=== PATIENT | female | born 1970 | race American Indian/Alaskan Native ===

== ENCOUNTER 2021-08-20 15:35 | Inpatient (IN) | payer MEDICAID ==
[2021-08-20] MEDS ORDERED: GLUCAGON (HUMAN RECOMBINANT) 1 MG/ML INJ IV ONE (16:01)
[2021-08-20] MEDS ORDERED: SODIUM CHLORIDE 0.9% 1000 ML 1,000 ML IV ONE ×2 (16:01→16:19)
--- NOTE | 2021-08-20 16:06 | Emergency Department Report ---
History of Present Illness - General Chief Complaint: Overdose Stated Complaint: OVERDOSE Time Seen by Provider: 08/20/21 15:57 Source: EMS Mode of arrival: Stretcher Limitations: No Limitations - History of Present Illness Initial Comments: Patient is a 51-year-old female brought in from home by EMS for overdose. Patient reportedly called out to EMS after intentionally overdosing on her home meds which include alprazolam, clonidine, propranolol, amlodipine, fluoxetine, olanzapine. She was given Narcan by EMS in route. - Related Data Allergies Allergy/AdvReac Type Severity Reaction Status Date / Time Unable to Assess Allergy Verified 08/20/21 15:40 ED Review of Systems ROS: Stated complaint: OVERDOSE Other details as noted in HPI Comment: Unobtainable due to pts medical conditions ED Physical Exam - General Limitations: No Limitations General appearance: appears intoxicated, obtunded - Head Head exam: Present: atraumatic, normocephalic - Eye Pupils: Present: miosis - Respiratory Respiratory exam: Present: normal lung sounds bilaterally. Absent: respiratory distress - Cardiovascular Cardiovascular Exam: Present: regular rate, normal rhythm, normal heart sounds - GI/Abdominal GI/Abdominal exam: Present: soft. Absent: distended, tenderness - Neurological Exam Neurological exam: Present: other (Patient altered/intoxicated) - Skin Skin exam: Present: warm, dry, intact, normal color ED Course Vital Signs 08/20/21 08/20/21 08/20/21 15:38 15:57 16:00 Pulse Rate 72 79 79 Respiratory 15 12 Rate Blood Pressure 94/68 Blood Pressure 95/65 [Left] O2 Sat by Pulse 99 98 96 Oximetry 08/20/21 08/20/21 08/20/21 16:15 16:31 16:45 Pulse Rate 73 71 72 Respiratory 14 15 14 Rate Blood Pressure 87/60 92/57 84/54 Blood Pressure [Left] O2 Sat by Pulse 99 99 99 Oximetry 08/20/21 08/20/21 08/20/21 17:01 17:15 17:31 Pulse Rate 70 68 67 Respiratory 13 14 14 Rate Blood Pressure 82/54 84/54 83/55 Blood Pressure [Left] O2 Sat by Pulse 99 99 Oximetry 08/20/21 08/20/21 08/20/21 17:45 18:01 18:36 Pulse Rate 66 64 Respiratory 13 22 Rate Blood Pressure 82/52 110/77 Blood Pressure [Left] O2 Sat by Pulse 99 100 100 Oximetry ED Medical Decision Making - Lab Data Result diagrams: 08/20/21 16:08 08/20/21 16:08 - Medical Decision Making CBC and CMP grossly unremarkable. UDS positive for cocaine and marijuana. Patient given IV glucagon and additional Narcan for refractory hypotension. She was also given 2 L normal saline bolus. 1013 file. Will admit to telemetry. Critical care attestation.: If time is entered above; I have spent that time in minutes in the direct care of this critically ill patient, excluding procedure time. ED Disposition Clinical Impression: Intentional overdose, Hypotension due to medication Disposition: ADMITTED INPATIENT Is pt being admited?: Yes Condition: Stable
[2021-08-20] MEDS ORDERED: NALOXONE 2 MG/2 ML INJ ONE (16:12)
[2021-08-20 16:20] LABS: Basophils % (Auto) 0.6 % (0.0-1.8); Eosinophils % (Auto) 0.5 % (0.0-4.3); Hematocrit 40.7 % (30.3-42.9); Hemoglobin 13.2 gm/dl (10.1-14.3); Lymphocytes # (Auto) 2.5 K/mm3 (1.2-5.4); Lymphocytes % (Auto) 49.8 % (13.4-35.0); Mean Corpuscular HGB Conc 33 % (30-34); Mean Corpuscular Volume 91 fl (79-97); Monocytes # (Auto) 0.5 K/mm3 (0.0-0.8); Monocytes % (Auto) 10.6 % (0.0-7.3); Platelet Count 228 K/mm3 (140-440); Red Blood Count 4.47 M/mm3 (3.65-5.03); Red Cell Distribution Width 15.9 % (13.2-15.2)
[2021-08-20] MEDS ORDERED: NALOXONE 2 MG/2 ML INJ IV ONE (16:21)
[2021-08-20 16:59] LABS: Alanine Aminotransferase 46 units/L (7-56); Blood Urea Nitrogen 4 mg/dL (7-17); Calcium 9.1 mg/dL (8.4-10.2); Hemolysis Index 5
[2021-08-20 17:00] LABS: BUN/Creatinine Ratio 7
[2021-08-20 19:11] LABS: Amphetamine Screen,Urine Negative; Benzodiazepines Screen,Urine Negative; Methadone Screen,Urine Negative; Opiate Screen,Urine Negative
[2021-08-20 19:27] LABS: Cannabinoid Screen,Urine Positive; Cocaine Screen,Urine Positive
--- NOTE | 2021-08-20 21:22 | History and Physical Report ---
History of Present Illness Date of examination: 08/20/21 Date of admission: 08/20/2021 Chief complaint: Altered sensorium since a.m. History of present illness: Patient is a 51-year-old female brought in from home by EMS for overdose. Patient reportedly called out to EMS after intentionally overdosing on her home meds which include alprazolam, clonidine, propranolol, amlodipine, fluoxetine, olanzapine. She was given Narcan by EMS in route. Past History Past Medical History: hypertension, other (Generalized anxiety disorder, depression) Past Surgical History: Other (Past surgical history could not be obtained) Social history: lives with family, full code Family history: hypertension Medications and Allergies Allergies Allergy/AdvReac Type Severity Reaction Status Date / Time Unable to Assess Allergy Verified 08/20/21 15:40 Home Medications Medication Instructions Recorded Confirmed Last Taken Type ALPRAZolam [Xanax TAB] 0.5 mg PO DAILY PRN 08/21/21 08/21/21 Unknown History Amlodipine Besylate [Norvasc] 5 mg PO DAILY 08/21/21 08/21/21 Unknown History FLUoxetine HCL [PROzac] 40 mg PO QDAY 08/21/21 08/21/21 Unknown History OLANZapine [Olanzapine] 10 mg PO HS 08/21/21 08/21/21 Unknown History cloNIDine [Catapres] 0.1 mg PO QHS 08/21/21 08/21/21 Unknown History propranoloL [Inderal] 40 mg PO BID 08/21/21 08/21/21 Unknown History Active Meds: Active Medications Dextrose/Sodium Chloride (D5ns) 1,000 mls @ 125 mls/hr IV DIRECT FEDERICO Review of Systems All systems: negative Neurological: change in mentation, other (Decreased responsiveness and altered sensorium) Exam - Constitutional Vitals: Temp Pulse Resp BP Pulse Ox 64 22 110/77 100 08/20/21 18:01 08/20/21 18:01 08/20/21 18:01 08/20/21 18:36 General appearance: Present: mild distress, well-nourished - EENT Eyes: Present: PERRL ENT: hearing intact, clear oral mucosa - Neck Neck: Present: supple, normal ROM - Respiratory Respiratory effort: normal Respiratory: bilateral: CTA - Cardiovascular Heart rate: 78 Rhythm: regular Heart Sounds: Present: S1 & S2. Absent: rub, click - Extremities Extremities: no ischemia, pulses intact, pulses symmetrical, No edema Peripheral Pulses: within normal limits - Abdominal General gastrointestinal: Present: soft, non-tender, non-distended, normal bowel sounds Female genitourinary: Present: normal - Integumentary Integumentary: Present: clear, warm, dry - Musculoskeletal Musculoskeletal: generalized weakness - Psychiatric Psychiatric: other (Unresponsive) - Neurologic Neurologic: moves all extremities - Allied Health Allied health notes reviewed: nursing HEART Score - HEART Score History: Slightly suspicious Age: 45-65 Risk factors: 1-2 risk factors Troponin: < normal limit - Critical Actions Critical Actions: 0-3 pts:0.9-1.7%risk of adverse cardiac event.Candidate for discharge Results - Labs CBC & Chem 7: 08/21/21 03:54 08/21/21 03:54 Labs: Laboratory Last Values WBC 5.0 K/mm3 (4.5-11.0) 08/20/21 16:08 RBC 4.47 M/mm3 (3.65-5.03) 08/20/21 16:08 Hgb 13.2 gm/dl (10.1-14.3) 08/20/21 16:08 Hct 40.7 % (30.3-42.9) 08/20/21 16:08 MCV 91 fl (79-97) 08/20/21 16:08 MCH 30 pg (28-32) 08/20/21 16:08 MCHC 33 % (30-34) 08/20/21 16:08 RDW 15.9 % (13.2-15.2) H 08/20/21 16:08 Plt Count 228 K/mm3 (140-440) 08/20/21 16:08 Lymph % (Auto) 49.8 % (13.4-35.0) H 08/20/21 16:08 [place] % (Auto) 10.6 % (0.0-7.3) H 08/20/21 16:08 Eos % (Auto) 0.5 % (0.0-4.3) 08/20/21 16:08 Baso % (Auto) 0.6 % (0.0-1.8) 08/20/21 16:08 Lymph # (Auto) 2.5 K/mm3 (1.2-5.4) 08/20/21 16:08 [place] # (Auto) 0.5 K/mm3 (0.0-0.8) 08/20/21 16:08 Eos # (Auto) 0.0 K/mm3 (0.0-0.4) 08/20/21 16:08 Baso # (Auto) 0.0 K/mm3 (0.0-0.1) 08/20/21 16:08 Seg Neutrophils % 38.5 % (40.0-70.0) L 08/20/21 16:08 Seg Neutrophils # 1.9 K/mm3 (1.8-7.7) 08/20/21 16:08 Sodium 136 mmol/L (137-145) L 08/20/21 16:08 Potassium 3.4 mmol/L (3.6-5.0) L 08/20/21 16:08 Chloride 99.2 mmol/L (98-107) 08/20/21 16:08 Carbon Dioxide 23 mmol/L (22-30) 08/20/21 16:08 Anion Gap 17 mmol/L 08/20/21 16:08 BUN 4 mg/dL (7-17) L 08/20/21 16:08 Creatinine 0.6 mg/dL (0.6-1.2) 08/20/21 16:08 Estimated GFR > 60 ml/min 08/20/21 16:08 BUN/Creatinine Ratio 7 % 08/20/21 16:08 Glucose 85 mg/dL (65-100) 08/20/21 16:08 Calcium 9.1 mg/dL (8.4-10.2) 08/20/21 16:08 Total Bilirubin 0.30 mg/dL (0.1-1.2) 08/20/21 16:08 AST 54 units/L (5-40) H 08/20/21 16:08 ALT 46 units/L (7-56) 08/20/21 16:08 Alkaline Phosphatase 82 units/L (35-129) 08/20/21 16:08 Total Protein 7.9 g/dL (6.3-8.2) 08/20/21 16:08 Albumin 4.0 g/dL (3.9-5) 08/20/21 16:08 Albumin/Globulin Ratio 1.0 % 08/20/21 16:08 Urine Opiates Screen Negative 08/20/21 18:05 Urine Methadone Screen Negative 08/20/21 18:05 Ur Barbiturates Screen Negative 08/20/21 18:05 Ur Phencyclidine Scrn Negative 08/20/21 18:05 Ur Amphetamines Screen Negative 08/20/21 18:05 U Benzodiazepines Scrn Negative 08/20/21 18:05 Urine Cocaine Screen Positive 08/20/21 18:05 U Marijuana (THC) Screen Positive 08/20/21 18:05 Drugs of Abuse Note Disclamer 08/20/21 18:05 Short CBC 08/20/21 08/21/21 Range/Units 16:08 03:54 WBC 5.0 5.8 (4.5-11.0) K/mm3 Hgb 13.2 12.2 (10.1-14.3) gm/dl Hct 40.7 37.3 (30.3-42.9) % Plt Count 228 224 (140-440) K/mm3 BMP 08/20/21 08/21/21 16:08 03:54 Sodium 136 L 140 Potassium 3.4 L 3.5 L Chloride 99.2 107.2 H Carbon Dioxide 23 22 BUN 4 L 4 L Creatinine 0.6 0.5 L Glucose 85 109 H Calcium 9.1 8.2 L Liver Function 08/20/21 08/21/21 Range/Units 16:08 03:54 Total Bilirubin 0.30 0.40 (0.1-1.2) mg/dL AST 54 H 44 H (5-40) units/L ALT 46 38 (7-56) units/L Alkaline Phosphatase 82 71 (35-129) units/L Albumin 4.0 3.2 L (3.9-5) g/dL Assessment and Plan Advance Directives: Yes (Full code) VTE prophylaxis?: Chemical Plan of care discussed with patient/family: Yes - Patient Problems (1) Acute encephalopathy Current Visit: Yes Status: Acute Plan to address problem: Secondary to drug overdose IV fluids for now [facility] protocol for agitation (2) Intentional overdose Current Visit: Yes Status: Acute Qualifiers: Encounter type: initial encounter Qualified Code(s): T50.902A - Poisoning by unspecified drugs, medicaments and biological substances, intentional self- harm, initial encounter Plan to address problem: Mental health consult and psych consult Patient is hypotensive IV normal saline for now No need for pressors at this time (3) Hypotension due to medication Current Visit: Yes Status: Acute Plan to address problem: IV normal saline for now (4) Hyponatremia Current Visit: Yes Status: Acute Plan to address problem: Mild now IV fluids in the form of normal saline (5) Hypokalemia Current Visit: Yes Status: Acute Plan to address problem: Supplemented (6) Generalized anxiety disorder Current Visit: Yes Status: Acute Plan to address problem: Will refer to psychiatry/mental health (7) DVT prophylaxis Current Visit: Yes Status: Acute Plan to address problem: On heparin and GI prophylaxis (8) Advance care planning Current Visit: Yes Status: Acute Plan to address problem: Discussed with family about disease education, care plan, diagnosis, prognosis. Patient is full code. Family acknowledges understanding and agreement with care plan. +30 minutes.
[2021-08-20] MEDS ORDERED: ONDANSETRON 4 MG/2 ML INJ IV PRN (21:24)
[2021-08-20] MEDS ORDERED: MORPHINE 2 MG/1 ML INJ IV PRN (21:24)
[2021-08-20] MEDS ORDERED: LORazepam 2 MG/ML VIAL IV PRN (21:43)
[2021-08-20] MEDS ORDERED: chlordiazePOXIDE 25 MG CAP PO PRN (21:43)
[2021-08-20] MEDS: FAMOTIDINE 20 MG/2 ML INJ IV SCH (22:51)
[2021-08-20] MEDS: HEPARIN 5,000 UNIT/1 ML VIAL SUB-Q SCH (22:51)
[2021-08-21] MEDS: D5W/0.9% NACL 1,000 ML IV SCH ×3 (00:53→22:18)
[2021-08-21 04:26] LABS: Basophils % (Auto) 0.5 % (0.0-1.8); Eosinophils % (Auto) 0.8 % (0.0-4.3); Hematocrit 37.3 % (30.3-42.9); Hemoglobin 12.2 gm/dl (10.1-14.3); Lymphocytes # (Auto) 2.3 K/mm3 (1.2-5.4); Lymphocytes % (Auto) 40.1 % (13.4-35.0); Mean Corpuscular HGB Conc 33 % (30-34); Mean Corpuscular Volume 92 fl (79-97); Monocytes # (Auto) 0.8 K/mm3 (0.0-0.8); Monocytes % (Auto) 14.1 % (0.0-7.3); Platelet Count 224 K/mm3 (140-440); Red Blood Count 4.06 M/mm3 (3.65-5.03); Red Cell Distribution Width 16.2 % (13.2-15.2)
[2021-08-21 04:48] LABS: Alanine Aminotransferase 38 units/L (7-56); Albumin 3.2 g/dL (3.9-5); Blood Urea Nitrogen 4 mg/dL (7-17); Calcium 8.2 mg/dL (8.4-10.2); Hemolysis Index 4
[2021-08-21 04:56] LABS: BUN/Creatinine Ratio 8
--- NOTE | 2021-08-21 09:52 | Progress Note ---
Assessment and Plan Assessment and plan: (1) Acute encephalopathy Secondary to drug overdose IV fluids for now [facility] protocol for agitation (2) Intentional overdose Mental health consult and psych consult Patient is hypotensive IV normal saline for now No need for pressors at this time (3) Hypotension due to medication IV normal saline for now (4) Hyponatremia Mild now IV fluids in the form of normal saline (5) Hypokalemia Supplemented (6) Generalized anxiety disorder Will refer to psychiatry/mental health (7) DVT prophylaxis On heparin and GI prophylaxis (8) Advance care planning Discussed with family about disease education, care plan, diagnosis, prognosis. Patient is full code. Family acknowledges understanding and agreement with care plan. +30 minutes. We will closely monitor the patient and adjust the management as needed 08/21/2021; psych evaluation recommendations noted and appreciated Patient is on 1013 status more alert and awake History Interval history: Have seen and examined the patient at the bedside Patient's chart and medications reviewed Patient is 1013 status in home baby sitter at the bedside Patient is more alert and awake responding appropriately Vital signs noted complains of generalized weakness Hospitalist Physical - Constitutional Vitals: Temp Pulse Resp BP Pulse Ox 98.0 F 71 18 94/65 99 08/21/21 03:53 08/21/21 03:53 08/21/21 03:53 08/21/21 03:53 08/21/21 08:28 General appearance: Present: no acute distress, well-nourished - EENT Eyes: Present: PERRL, EOM intact - Neck Neck: Present: supple, normal ROM - Respiratory Respiratory effort: normal Respiratory: bilateral: diminished, negative: rales, rhonchi, wheezing - Cardiovascular Rhythm: regular Heart Sounds: Present: S1 & S2 - Extremities Extremities: no ischemia, No edema - Abdominal General gastrointestinal: soft, non-tender, non-distended, normal bowel sounds - Integumentary Integumentary: Present: clear, warm - Psychiatric Psychiatric: appropriate mood/affect, cooperative - Neurologic Neurologic: moves all extremities HEART Score - HEART Score Age: 45-65 Risk factors: 1-2 risk factors Troponin: < normal limit - Critical Actions Critical Actions: 0-3 pts:0.9-1.7%risk of adverse cardiac event.Candidate for discharge Results - Labs CBC & Chem 7: 08/21/21 03:54 08/21/21 03:54 Labs: Laboratory Last Values WBC 5.8 K/mm3 (4.5-11.0) 08/21/21 03:54 RBC 4.06 M/mm3 (3.65-5.03) 08/21/21 03:54 Hgb 12.2 gm/dl (10.1-14.3) 08/21/21 03:54 Hct 37.3 % (30.3-42.9) 08/21/21 03:54 MCV 92 fl (79-97) 08/21/21 03:54 MCH 30 pg (28-32) 08/21/21 03:54 MCHC 33 % (30-34) 08/21/21 03:54 RDW 16.2 % (13.2-15.2) H 08/21/21 03:54 Plt Count 224 K/mm3 (140-440) 08/21/21 03:54 Lymph % (Auto) 40.1 % (13.4-35.0) H 08/21/21 03:54 [place] % (Auto) 14.1 % (0.0-7.3) H 08/21/21 03:54 Eos % (Auto) 0.8 % (0.0-4.3) 08/21/21 03:54 Baso % (Auto) 0.5 % (0.0-1.8) 08/21/21 03:54 Lymph # (Auto) 2.3 K/mm3 (1.2-5.4) 08/21/21 03:54 [place] # (Auto) 0.8 K/mm3 (0.0-0.8) 08/21/21 03:54 Eos # (Auto) 0.0 K/mm3 (0.0-0.4) 08/21/21 03:54 Baso # (Auto) 0.0 K/mm3 (0.0-0.1) 08/21/21 03:54 Seg Neutrophils % 44.5 % (40.0-70.0) 08/21/21 03:54 Seg Neutrophils # 2.6 K/mm3 (1.8-7.7) 08/21/21 03:54 Sodium 140 mmol/L (137-145) 08/21/21 03:54 Potassium 3.5 mmol/L (3.6-5.0) L 08/21/21 03:54 Chloride 107.2 mmol/L (98-107) H 08/21/21 03:54 Carbon Dioxide 22 mmol/L (22-30) 08/21/21 03:54 Anion Gap 14 mmol/L 08/21/21 03:54 BUN 4 mg/dL (7-17) L 08/21/21 03:54 Creatinine 0.5 mg/dL (0.6-1.2) L 08/21/21 03:54 Estimated GFR > 60 ml/min 08/21/21 03:54 BUN/Creatinine Ratio 8 % 08/21/21 03:54 Glucose 109 mg/dL (65-100) H 08/21/21 03:54 Calcium 8.2 mg/dL (8.4-10.2) L 08/21/21 03:54 Total Bilirubin 0.40 mg/dL (0.1-1.2) 08/21/21 03:54 AST 44 units/L (5-40) H 08/21/21 03:54 ALT 38 units/L (7-56) 08/21/21 03:54 Alkaline Phosphatase 71 units/L (35-129) 08/21/21 03:54 Total Protein 6.2 g/dL (6.3-8.2) L D 08/21/21 03:54 Albumin 3.2 g/dL (3.9-5) L 08/21/21 03:54 Albumin/Globulin Ratio 1.1 % 08/21/21 03:54 Urine Opiates Screen Negative 08/20/21 18:05 Urine Methadone Screen Negative 08/20/21 18:05 Ur Barbiturates Screen Negative 08/20/21 18:05 Ur Phencyclidine Scrn Negative 08/20/21 18:05 Ur Amphetamines Screen Negative 08/20/21 18:05 U Benzodiazepines Scrn Negative 08/20/21 18:05 Urine Cocaine Screen Positive 08/20/21 18:05 U Marijuana (THC) Screen Positive 08/20/21 18:05 Drugs of Abuse Note Disclamer 08/20/21 18:05 Hernandez/IV: Voiding Method Indwelling Catheter Active Medications - Current Medications Current Medications: Generic Name Dose Route Start Last Admin Trade Name Freq PRN Reason Stop Dose Admin Acetaminophen 650 mg 08/20/21 21:24 Acetaminophen 325 Mg Tab PO Q4H PRN Pain MILD(1-3)/Fever >100.5/SHER[place]OD Chlordiazepoxide HCl 50 mg 08/20/21 21:43 Chlordiazepoxide 25 Mg Cap PO Q1H PRN CIWA-Ar 8-15 Famotidine 20 mg 08/20/21 22:00 08/20/21 22:51 Famotidine 20 Mg/2 Ml Inj IV 20 mg BID FEDERICO Administration Heparin Sodium (Porcine) 5,000 unit 08/20/21 22:00 08/20/21 22:51 Heparin 5,000 Unit/1 Ml Vial SUB-Q 5,000 unit Q12HR FEDERICO Administration Dextrose/Sodium Chloride 1,000 mls @ 125 mls/hr 08/20/21 18:00 08/21/21 00:53 D5ns IV 125 mls/hr DIRECT FEDERICO Administration Lorazepam 2 mg 08/20/21 21:43 Lorazepam 2 Mg/Ml Vial IV Q1H PRN CIWA-Ar 8-15 Morphine Sulfate 2 mg 08/20/21 21:24 Morphine 2 Mg/1 Ml Inj IV Q4H PRN Pain, Moderate (4-6) Ondansetron HCl 4 mg 08/20/21 21:24 Ondansetron 4 Mg/2 Ml Inj IV Q8H PRN Nausea And Vomiting Sodium Chloride 10 ml 08/20/21 22:00 08/20/21 22:52 Sodium Chloride 0.9% 10 Ml Flush Syringe IV 10 ml BID FEDERICO Administration Sodium Chloride 10 ml 08/20/21 21:24 Sodium Chloride 0.9% 10 Ml Flush Syringe IV PRN PRN LINE FLUSH
--- NOTE | 2021-08-21 10:21 | Electrocardiograph Report ---
[facility] Test Date: 2021-08-20 Test Time: 16:08:32 Pat Name: RALPH KINCAID Department: Room: A459 1 Gender: F Customer Care Specialist: IGNACIO : 1970 Requested By: OMERO ESCOBEDO Order Number: [id number] Reading MD: Erickson Valentine Measurements Intervals [place] Rate: 75 P: 18 MN: 151 QRS: 0 QRSD: 91 T: 29 QT: 432 QTc: 483 Interpretive Statements Sinus rhythm No previous ECG available for comparison Electronically Signed On 08-21-2021 10:20:38 EDT by Erickson Valentine
--- NOTE | 2021-08-21 11:48 | Consultation ---
History of Present Illness - Reason for Consult Consult date: 08/21/21 Reason for consult: mental health evaluation - Chief Complaint Chief complaint: Altered sensorium since a.m. - History of Present Psychiatric Illness H&P: Patient is a 51-year-old female brought in from home by EMS for overdose. Patient reportedly called out to EMS after intentionally overdosing on her home meds which include alprazolam, clonidine, propranolol, amlodipine, fluoxetine, olanzapine. She was given Narcan by EMS in route. The patient is a 51 year old female with history of Schizophrenia, bipolar type who was admitted post intentional overdose on medications. The patient was seen today. She presents with pressures speech and flight of ideas. The patient seems easily irritable; she was initially very reluctant with answering questions. The patient states that " I took too many medications, the voices kept telling me to do it." The patient states stressors such as " people dying and I have to move back home to my mama." The patient denies having suicidal ideation but admits to having homicidal thoughts about " my ex-boyfriend and this girl that disrespected me." She also endorses auditory hallucinations voices " telling me to kick his s and burst his head with a hammer." PAST PSYCHIATRIC HISTORY: Diagnoses: Schizophrenia, bipolar type Suicide attempts or Self-harm behavior: Yes Prior psychiatric hospitalizations: Yes Substance Abuse history: Marijuana Previous psychiatric medications tried: unable to recall Outpatient treatment: unknown PAST MEDICAL HISTORY: Family Psychiatric History: None reported or documented SOCIAL HISTORY Marital Status: Single Living Arrangements: alone Employment Status:Unemployed Access to guns/weapons: Denies Education: GED History of Abuse: None reported Legal History: None reported REVIEW OF SYSTEMS Constitutional: Negative for weight loss ENT: Negative for stridor Respiratory: Negative for cough or hemoptysis All other systems reviewed and are negative MENTAL STATUS EXAMINATION General Appearance and Behavior: Age appropriate, good hygiene, wearing appropriate clothes, good eye contact, cooperative Cooperation: Participating/engaged Psychomotor Behavior: unremarkable and within normal limits Mood: Irritable, depressed Affect and affective range: congruent with mood Thought Process: circumstantial,flight of ideas Thought Content: Obsessions Speech: Pressured, hyperverbal Suicidal Ideation: Denies Homicidal Ideation: Yes Hallucinations: Auditory Impulse Control: Unimpaired Insight and Judgment: Limited insight and poor judgment Memory: Normal Attention: Normal Orientation: Alert, oriented Assessment Schizophrenia, bipolar type Treatment Plan 1013 Start Depakote 250mg po BID Start Seroquel 100mg po QHS Sitter: Defer to primary Medical: Per primary Disposition: Recommend acute inpatient treatment. Will follow. Case discussed with Dr. Silva Medications and Allergies Medications and Allergies Allergies Allergy/AdvReac Type Severity Reaction Status Date / Time No Known Allergies Allergy Unverified 08/21/21 10:32 Home Medications Medication Instructions Recorded Confirmed Last Taken Type ALPRAZolam [Xanax TAB] 0.5 mg PO DAILY PRN 08/21/21 08/21/21 Unknown History Amlodipine Besylate [Norvasc] 5 mg PO DAILY 08/21/21 08/21/21 Unknown History FLUoxetine HCL [PROzac] 40 mg PO QAM 08/21/21 08/21/21 Unknown History OLANZapine [Olanzapine] 10 mg PO HS 08/21/21 08/21/21 Unknown History Tranexamic Acid [Lysteda] 650 mg PO TID 08/21/21 08/21/21 Unknown History cloNIDine [Catapres] 0.1 mg PO QHS 08/21/21 08/21/21 Unknown History propranoloL [Inderal] 40 mg PO BID 08/21/21 08/21/21 Unknown History Active Meds: Active Medications Acetaminophen (Acetaminophen 325 Mg Tab) 650 mg PO Q4H PRN PRN Reason: Pain MILD(1-3)/Fever >100.5/[place] Chlordiazepoxide HCl (Chlordiazepoxide 25 Mg Cap) 50 mg PO Q1H PRN PRN Reason: CIWA-Ar 8-15 Famotidine (Famotidine 20 Mg/2 Ml Inj) 20 mg IV BID FEDERICO Last Admin: 08/20/21 22:51 Dose: 20 mg Heparin Sodium (Porcine) (Heparin 5,000 Unit/1 Ml Vial) 5,000 unit SUB-Q Q12HR FEDERICO Last Admin: 08/20/21 22:51 Dose: 5,000 unit Dextrose/Sodium Chloride (D5ns) 1,000 mls @ 125 mls/hr IV DIRECT FEDERICO Last Admin: 08/21/21 00:53 Dose: 125 mls/hr Lorazepam (Lorazepam 2 Mg/Ml Vial) 2 mg IV Q1H PRN PRN Reason: CIWA-Ar 8-15 Morphine Sulfate (Morphine 2 Mg/1 Ml Inj) 2 mg IV Q4H PRN PRN Reason: Pain, Moderate (4-6) Ondansetron HCl (Ondansetron 4 Mg/2 Ml Inj) 4 mg IV Q8H PRN PRN Reason: Nausea And Vomiting Sodium Chloride (Sodium Chloride 0.9% 10 Ml Flush Syringe) 10 ml IV BID [place]ER[place] Last Admin: 08/20/21 22:52 Dose: 10 ml Sodium Chloride (Sodium Chloride 0.9% 10 Ml Flush Syringe) 10 ml IV PRN PRN PRN Reason: LINE FLUSH Mental Status Exam - Vital signs Last Vital Signs Temp 97.6 F 08/21/21 09:00 Pulse 66 08/21/21 09:00 Resp 20 08/21/21 09:00 BP 103/73 08/21/21 09:00 Pulse Ox 100 08/21/21 09:00 Results Result Diagrams: 08/21/21 03:54 08/21/21 03:54 Abnormal lab results 08/20/21 08/20/21 08/21/21 Range/Units 16:08 16:08 03:54 RDW 15.9 H 16.2 H (13.2-15.2) % Lymph % (Auto) 49.8 H 40.1 H (13.4-35.0) % [place] % (Auto) 10.6 H 14.1 H (0.0-7.3) % Seg Neutrophils % 38.5 L (40.0-70.0) % Sodium 136 L (137-145) mmol/L Potassium 3.4 L (3.6-5.0) mmol/L Chloride (98-107) mmol/L BUN 4 L (7-17) mg/dL Creatinine (0.6-1.2) mg/dL Glucose (65-100) mg/dL Calcium (8.4-10.2) mg/dL AST 54 H (5-40) units/L Total Protein (6.3-8.2) g/dL Albumin (3.9-5) g/dL 08/21/21 Range/Units 03:54 RDW (13.2-15.2) % Lymph % (Auto) (13.4-35.0) % [place] % (Auto) (0.0-7.3) % Seg Neutrophils % (40.0-70.0) % Sodium (137-145) mmol/L Potassium 3.5 L (3.6-5.0) mmol/L Chloride 107.2 H (98-107) mmol/L BUN 4 L (7-17) mg/dL Creatinine 0.5 L (0.6-1.2) mg/dL Glucose 109 H (65-100) mg/dL Calcium 8.2 L (8.4-10.2) mg/dL AST 44 H (5-40) units/L Total Protein 6.2 L D (6.3-8.2) g/dL Albumin 3.2 L (3.9-5) g/dL All other labs normal.
[2021-08-21] MEDS: DIVALPROEX DR 250 MG TAB PO SCH ×2 (12:31→22:06)
[2021-08-21] MEDS: FAMOTIDINE 20 MG/2 ML INJ IV SCH ×2 (12:32→22:06)
[2021-08-21] MEDS: HEPARIN 5,000 UNIT/1 ML VIAL SUB-Q SCH ×2 (12:32→22:06)
[2021-08-21] MEDS: QUEtiapine 100 MG TAB PO SCH (22:10)
[2021-08-22] MEDS: D5W/0.9% NACL 1,000 ML IV SCH ×2 (05:20→20:57)
[2021-08-22] MEDS: FAMOTIDINE 20 MG/2 ML INJ IV SCH ×2 (09:46→20:59)
[2021-08-22] MEDS: DIVALPROEX DR 250 MG TAB PO SCH ×2 (09:46→20:59)
[2021-08-22] MEDS: HEPARIN 5,000 UNIT/1 ML VIAL SUB-Q SCH ×2 (09:46→20:59)
--- NOTE | 2021-08-22 13:32 | Progress Note ---
Subjective - Reason for Consult Consult date: 08/22/21 Reason for consult: OD - Chief Complaint Chief complaint: The patient was seen today. She says she's having to concentrate hard to keep from hearing the voices. She says they have gotten worse over last few days. She says they are loud and keep telling her "take the pills. Take the pills." She says they are also telling her she needs to kill other people. The patient says she typically takes Risperidone and it seemed to help. REVIEW OF SYSTEMS Constitutional: Negative for weight loss ENT: Negative for stridor Respiratory: Negative for cough or hemoptysis All other systems reviewed and are negative MENTAL STATUS EXAMINATION General Appearance and Behavior: Age appropriate, good hygiene, wearing appropriate clothes, good eye contact, cooperative Cooperation: Participating/engaged Psychomotor Behavior: unremarkable and within normal limits Mood: Irritable, depressed Affect and affective range: congruent with mood Thought Process: circumstantial Thought Content: Obsessions, hallucinations Speech: Pressured, hyperverbal Suicidal Ideation: yes Homicidal Ideation: Yes Hallucinations: Auditory Impulse Control: Unimpaired Insight and Judgment: Limited insight and poor judgment Memory: Normal Attention: Normal Orientation: Alert, oriented Assessment Schizophrenia, bipolar type Intentional Overdose Treatment Plan 1013 Start Risperidone 1mg po daily Depakote 250mg po BID Seroquel 100mg po QHS Sitter: Defer to primary Medical: Per primary Disposition: Recommend acute inpatient treatment. Will follow. Thanks Case discussed with Dr. Silva Mental Status Exam - Vital signs Last Vital Signs Temp 98.3 F 08/22/21 10:59 Pulse 81 08/22/21 10:59 Resp 18 08/22/21 10:59 BP 134/89 08/22/21 10:59 Pulse Ox 97 08/22/21 10:59
[2021-08-22] MEDS: risperiDONE 1 MG TAB PO SCH (14:18)
--- NOTE | 2021-08-22 16:37 | Progress Note ---
Assessment and Plan Assessment and plan: --Acute toxic metabolic encephalopathy Secondary to drug overdose Hold the medications IV fluids, supportive care --Intentional overdose Mental health consult and psych consult Patient is hypotensive IV normal saline hold the medications Psych following -- Suicidal attempt; Suicidal watch, 1013 status Psych following, treat the underlying depression And anxiety. Supportive care --hypotension due to medication IV normal saline for now -- Mild hyponatremia/resolved Monitor electrolytes --Hypokalemia Supplemented, monitor electrolytes --Generalized anxiety disorder Will refer to psychiatry/mental health Anxiolytic medications --DVT prophylaxis On heparin and GI prophylaxis --Advance care planning Discussed with family about disease education, care plan, diagnosis, prognosis. Patient is full code. Family acknowledges understanding and agreement with care plan. +30 minutes. We will closely monitor the patient and adjust the management as needed 08/21/2021; psych evaluation recommendations noted and appreciated Patient is on 1013 status more alert and awake 08/22/2021; psych evaluation noted and appreciated Planning inpatient psych placement Continue 3 status History Interval history: I have seen and examined the patient at the bedside this morning Patient's chart and medications reviewed. Patient is more alert and awake today looks depressed And 13 status suggested the bedside Vital signs noted Psych evaluation and recommendations noted Hospitalist Physical - Constitutional Vitals: Temp Pulse Resp BP Pulse Ox 98.3 F 81 18 134/89 97 08/22/21 10:59 08/22/21 10:59 08/22/21 10:59 08/22/21 10:59 08/22/21 10:59 General appearance: Present: no acute distress, well-nourished, other (Depressed) - EENT Eyes: Present: PERRL, EOM intact - Neck Neck: Present: supple, normal ROM - Respiratory Respiratory effort: normal Respiratory: bilateral: diminished, negative: rales, rhonchi, wheezing - Cardiovascular Rhythm: regular Heart Sounds: Present: S1 & S2 - Extremities Extremities: no ischemia, No edema - Abdominal General gastrointestinal: soft, non-tender, non-distended, normal bowel sounds - Integumentary Integumentary: Present: clear, warm - Psychiatric Psychiatric: appropriate mood/affect, cooperative, other (Depressed) - Neurologic Neurologic: other (Depressed) HEART Score - HEART Score Age: 45-65 Risk factors: 1-2 risk factors Troponin: < normal limit - Critical Actions Critical Actions: 0-3 pts:0.9-1.7%risk of adverse cardiac event.Candidate for discharge Results - Labs CBC & Chem 7: 08/21/21 03:54 08/21/21 03:54 Labs: Laboratory Last Values WBC 5.8 K/mm3 (4.5-11.0) 08/21/21 03:54 RBC 4.06 M/mm3 (3.65-5.03) 08/21/21 03:54 Hgb 12.2 gm/dl (10.1-14.3) 08/21/21 03:54 Hct 37.3 % (30.3-42.9) 08/21/21 03:54 MCV 92 fl (79-97) 08/21/21 03:54 MCH 30 pg (28-32) 08/21/21 03:54 MCHC 33 % (30-34) 08/21/21 03:54 RDW 16.2 % (13.2-15.2) H 08/21/21 03:54 Plt Count 224 K/mm3 (140-440) 08/21/21 03:54 Lymph % (Auto) 40.1 % (13.4-35.0) H 08/21/21 03:54 [place] % (Auto) 14.1 % (0.0-7.3) H 08/21/21 03:54 Eos % (Auto) 0.8 % (0.0-4.3) 08/21/21 03:54 Baso % (Auto) 0.5 % (0.0-1.8) 08/21/21 03:54 Lymph # (Auto) 2.3 K/mm3 (1.2-5.4) 08/21/21 03:54 [place] # (Auto) 0.8 K/mm3 (0.0-0.8) 08/21/21 03:54 Eos # (Auto) 0.0 K/mm3 (0.0-0.4) 08/21/21 03:54 Baso # (Auto) 0.0 K/mm3 (0.0-0.1) 08/21/21 03:54 Seg Neutrophils % 44.5 % (40.0-70.0) 08/21/21 03:54 Seg Neutrophils # 2.6 K/mm3 (1.8-7.7) 08/21/21 03:54 Sodium 140 mmol/L (137-145) 08/21/21 03:54 Potassium 3.5 mmol/L (3.6-5.0) L 08/21/21 03:54 Chloride 107.2 mmol/L (98-107) H 08/21/21 03:54 Carbon Dioxide 22 mmol/L (22-30) 08/21/21 03:54 Anion Gap 14 mmol/L 08/21/21 03:54 BUN 4 mg/dL (7-17) L 08/21/21 03:54 Creatinine 0.5 mg/dL (0.6-1.2) L 08/21/21 03:54 Estimated GFR > 60 ml/min 08/21/21 03:54 BUN/Creatinine Ratio 8 % 08/21/21 03:54 Glucose 109 mg/dL (65-100) H 08/21/21 03:54 Calcium 8.2 mg/dL (8.4-10.2) L 08/21/21 03:54 Total Bilirubin 0.40 mg/dL (0.1-1.2) 08/21/21 03:54 AST 44 units/L (5-40) H 08/21/21 03:54 ALT 38 units/L (7-56) 08/21/21 03:54 Alkaline Phosphatase 71 units/L (35-129) 08/21/21 03:54 Total Protein 6.2 g/dL (6.3-8.2) L D 08/21/21 03:54 Albumin 3.2 g/dL (3.9-5) L 08/21/21 03:54 Albumin/Globulin Ratio 1.1 % 08/21/21 03:54 Urine Opiates Screen Negative 08/20/21 18:05 Urine Methadone Screen Negative 08/20/21 18:05 Ur Barbiturates Screen Negative 08/20/21 18:05 Ur Phencyclidine Scrn Negative 08/20/21 18:05 Ur Amphetamines Screen Negative 08/20/21 18:05 U Benzodiazepines Scrn Negative 08/20/21 18:05 Urine Cocaine Screen Positive 08/20/21 18:05 U Marijuana (THC) Screen Positive 08/20/21 18:05 Drugs of Abuse Note Disclamer 08/20/21 18:05 Hernandez/IV: Voiding Method Indwelling Catheter Active Medications - Current Medications Current Medications: Generic Name Dose Route Start Last Admin Trade Name Shaq PRN Reason Stop Dose Admin Acetaminophen 650 mg 08/20/21 21:24 Acetaminophen 325 Mg Tab PO Q4H PRN Pain MILD(1-3)/Fever >100.5/[place]ER[place]OD Chlordiazepoxide HCl 50 mg 08/20/21 21:43 Chlordiazepoxide 25 Mg Cap PO Q1H PRN CIWA-Ar 8-15 Divalproex Sodium 250 mg 08/21/21 12:00 08/22/21 09:[address] 250 Mg Tab PO 250 mg BID FEDERICO Administration Famotidine 20 mg 08/20/21 22:00 08/22/21 09:46 Famotidine 20 Mg/2 Ml Inj IV 20 mg BID FEDERICO Administration Heparin Sodium (Porcine) 5,000 unit 08/20/21 22:00 08/22/21 09:46 Heparin 5,000 Unit/1 Ml Vial SUB-Q 5,000 unit Q12HR FEDERICO Administration Dextrose/Sodium Chloride 1,000 mls @ 125 mls/hr 08/20/21 18:00 08/22/21 05:20 D5ns IV 125 mls/hr DIRECT FEDERICO Administration Lorazepam 2 mg 08/20/21 21:43 Lorazepam 2 Mg/Ml Vial IV Q1H PRN CIWA-Ar 8- Morphine Sulfate 2 mg 08/20/21 21:24 Morphine 2 Mg/1 Ml Inj IV Q4H PRN Pain, Moderate (4-6) Ondansetron HCl 4 mg 08/20/21 21:24 Ondansetron 4 Mg/2 Ml Inj IV Q8H PRN Nausea And Vomiting Quetiapine Fumarate 100 mg 08/21/21 22:00 08/21/21 22:10 Quetiapine 100 Mg Tab PO 100 mg QHS FEDERICO Administration Risperidone 1 mg 08/22/21 14:00 08/22/21 14:18 Risperidone 1 Mg Tab PO 1 mg DAILY FEDERICO Administration Sodium Chloride 10 ml 08/20/21 22:00 08/22/21 09:47 Sodium Chloride 0.9% 10 Ml Flush Syringe IV 10 ml BID FEDERICO Administration Sodium Chloride 10 ml 08/20/21 21:24 Sodium Chloride 0.9% 10 Ml Flush Syringe IV PRN PRN LINE FLUSH
[2021-08-22] MEDS: QUEtiapine 100 MG TAB PO SCH (20:59)
[2021-08-22] MEDS ORDERED: FLUoxetine 20 MG/5 ML ORAL LIQD PO ONE (21:41)
[2021-08-22] MEDS ORDERED: cloNIDine 0.1 MG TAB PO ONE (22:00)
[2021-08-22] MEDS ORDERED: FLUoxetine 20 MG CAP PO ONE (22:05)
[2021-08-23] MEDS: D5W/0.9% NACL 1,000 ML IV SCH ×3 (04:13→23:58)
[2021-08-23 05:32] LABS: Alanine Aminotransferase 39 units/L (7-56); Albumin 3.1 g/dL (3.9-5); BUN/Creatinine Ratio 4; Blood Urea Nitrogen 2 mg/dL (7-17); Hemolysis Index 5
[2021-08-23] MEDS: risperiDONE 1 MG TAB PO SCH (09:44)
[2021-08-23] MEDS: DIVALPROEX DR 250 MG TAB PO SCH ×2 (09:44→21:21)
[2021-08-23] MEDS: FAMOTIDINE 20 MG/2 ML INJ IV SCH ×2 (09:44→21:25)
[2021-08-23] MEDS: HEPARIN 5,000 UNIT/1 ML VIAL SUB-Q SCH ×2 (09:45→21:23)
[2021-08-23] MEDS: hydrALAZINE 25 MG TAB PO SCH ×2 (14:51→19:39)
--- NOTE | 2021-08-23 14:58 | Progress Note ---
Subjective - Reason for Consult Consult date: 08/23/21 Reason for consult: Intentional OD - Chief Complaint Chief complaint: The patient was seen today. She is talkative. She says she's not on the right medications. She says she takes prozac, xanax, risperidone and ambien. The patient says she has to fight hard to drown out the voices. She says they are loud in her ear telling her to hurt people. She says "but I'm not going to do it cause I don't want to go to residential." She says "but they keep bothering me." The patient says her anxiety is bad and when it starts all she can do is sob. She says "I can't control it. The voices be too much for me." REVIEW OF SYSTEMS Constitutional: Negative for weight loss ENT: Negative for stridor Respiratory: Negative for cough or hemoptysis All other systems reviewed and are negative MENTAL STATUS EXAMINATION General Appearance and Behavior: Age appropriate, good hygiene, wearing appropriate clothes, good eye contact, cooperative Cooperation: Participating/engaged Psychomotor Behavior: unremarkable and within normal limits Mood: Irritable, depressed Affect and affective range: congruent with mood Thought Process: circumstantial Thought Content: Obsessions, hallucinations Speech: Pressured, hyperverbal Suicidal Ideation: yes Homicidal Ideation: Yes Hallucinations: Auditory Impulse Control: Unimpaired Insight and Judgment: Limited insight and poor judgment Memory: Normal Attention: Normal Orientation: Alert, oriented Assessment Schizophrenia, bipolar type Intentional Overdose Treatment Plan 1013 Start Prozac 40mg po daily Start Xanax 0.5mg po q8h prn anxiety Start Doxepin 10m gpo qhs Change CIWA Lorazepam from q1h to q4h d/c Seroquel 100mg po QHS Continue Risperidone Sitter: Defer to primary Medical: Per primary Disposition: Recommend acute inpatient treatment. Will follow. Thanks Case discussed with Dr. Silva Mental Status Exam - Vital signs Last Vital Signs Temp 97.4 F L 08/23/21 12:33 Pulse 80 08/23/21 12:33 Resp 18 08/23/21 12:33 BP 169/108 08/23/21 12:33 Pulse Ox 98 08/23/21 08:00
[2021-08-23] MEDS ORDERED: LORazepam 2 MG/ML VIAL IV PRN (15:02)
[2021-08-23] MEDS: ALPRAZolam 0.5 MG TAB PO PRN (17:09)
[2021-08-23] MEDS: ACETAMINOPHEN 325 MG TAB PO PRN (19:38)
--- NOTE | 2021-08-23 19:49 | Progress Note ---
Assessment and Plan Assessment and plan: --Acute toxic metabolic encephalopathy Secondary to drug overdose Hold the medications IV fluids, supportive care --Intentional overdose Mental health consult and psych consult Patient is hypotensive IV normal saline hold the medications Psych following -- Suicidal attempt; Suicidal watch, 1012 status Psych following, treat the underlying depression And anxiety. Supportive care --hypotension due to medication IV normal saline for now -- Mild hyponatremia/resolved Monitor electrolytes --Hypokalemia Supplemented, monitor electrolytes --Generalized anxiety disorder Will refer to psychiatry/mental health Anxiolytic medications --DVT prophylaxis On heparin and GI prophylaxis --Advance care planning Discussed with family about disease education, care plan, diagnosis, prognosis. Patient is full code. Family acknowledges understanding and agreement with care plan. +30 minutes. We will closely monitor the patient and adjust the management as needed 08/21/2021; psych evaluation recommendations noted and appreciated Patient is on 1013 status more alert and awake 08/22/2021; psych evaluation noted and appreciated Planning inpatient psych placement Continue 1012 status 08/23/2021; patient is more alert and awake Denies suicidal thoughts or ideation Psych following, 1012 status Continue current management History Interval history: I seen and examined the patient at the bedside Patient's chart and medications reviewed couture dressmaker is in the room/1012 status Patient feels slightly better Anxious to go home Vital signs noted Hospitalist Physical - Constitutional Vitals: Temp Pulse Resp BP Pulse Ox 98.4 F 103 H 18 149/104 98 08/23/21 16:42 08/23/21 17:00 08/23/21 19:38 08/23/21 16:42 08/23/21 08:00 General appearance: Present: no acute distress, well-nourished, other (Depressed) - EENT Eyes: Present: PERRL, EOM intact - Neck Neck: Present: supple, normal ROM - Respiratory Respiratory effort: normal Respiratory: bilateral: diminished, negative: rales, rhonchi (60), wheezing - Cardiovascular Rhythm: regular Heart Sounds: Present: S1 & S2 - Extremities Extremities: no ischemia, No edema - Abdominal General gastrointestinal: soft, non-tender (Tomorrow which is using diuretics also), non-distended, normal bowel sounds - Integumentary Integumentary: Present: clear, warm - Psychiatric Psychiatric: appropriate mood/affect, cooperative (Daily discharge PLANNING) - Neurologic Neurologic: CNII-XII intact, moves all extremities HEART Score - HEART Score Age: 45-65 Risk factors: 1-2 risk factors Troponin: < normal limit - Critical Actions Critical Actions: 0-3 pts:0.9-1.7%risk of adverse cardiac event.Candidate for discharge Results - Labs CBC & Chem 7: 08/21/21 03:54 08/23/21 04:33 Labs: Laboratory Last Values WBC 5.8 K/mm3 (4.5-11.0) 08/21/21 03:54 RBC 4.06 M/mm3 (3.65-5.03) 08/21/21 03:54 Hgb 12.2 gm/dl (10.1-14.3) 08/21/21 03:54 Hct 37.3 % (30.3-42.9) 08/21/21 03:54 MCV 92 fl (79-97) 08/21/21 03:54 MCH 30 pg (28-32) 08/21/21 03:54 MCHC 33 % (30-34) 08/21/21 03:54 RDW 16.2 % (13.2-15.2) H 08/21/21 03:54 Plt Count 224 K/mm3 (140-440) 08/21/21 03:54 Lymph % (Auto) 40.1 % (13.4-35.0) H 08/21/21 03:54 [place] % (Auto) 14.1 % (0.0-7.3) H 08/21/21 03:54 Eos % (Auto) 0.8 % (0.0-4.3) 08/21/21 03:54 Baso % (Auto) 0.5 % (0.0-1.8) 08/21/21 03:54 Lymph # (Auto) 2.3 K/mm3 (1.2-5.4) 08/21/21 03:54 [place] # (Auto) 0.8 K/mm3 (0.0-0.8) 08/21/21 03:54 Eos # (Auto) 0.0 K/mm3 (0.0-0.4) 08/21/21 03:54 Baso # (Auto) 0.0 K/mm3 (0.0-0.1) 08/21/21 03:54 Seg Neutrophils % 44.5 % (40.0-70.0) 08/21/21 03:54 Seg Neutrophils # 2.6 K/mm3 (1.8-7.7) 08/21/21 03:54 Sodium 140 mmol/L (137-145) 08/23/21 04:33 Potassium 3.6 mmol/L (3.6-5.0) 08/23/21 04:33 Chloride 108.2 mmol/L (98-107) H 08/23/21 04:33 Carbon Dioxide 23 mmol/L (22-30) 08/23/21 04:33 Anion Gap 12 mmol/L 08/23/21 04:33 BUN 2 mg/dL (7-17) L 08/23/21 04:33 Creatinine 0.5 mg/dL (0.6-1.2) L 08/23/21 04:33 Estimated GFR > 60 ml/min 08/23/21 04:33 BUN/Creatinine Ratio 4 % 08/23/21 04:33 Glucose 92 mg/dL (65-100) 08/23/21 04:33 Calcium 8.0 mg/dL (8.4-10.2) L 08/23/21 04:33 Magnesium 1.60 mg/dL (1.7-2.3) L 08/23/21 04:33 Total Bilirubin < 0.20 mg/dL (0.1-1.2) 08/23/21 04:33 AST 49 units/L (5-40) H 08/23/21 04:33 ALT 39 units/L (7-56) 08/23/21 04:33 Alkaline Phosphatase 98 units/L (35-129) 08/23/21 04:33 Total Protein 6.0 g/dL (6.3-8.2) L 08/23/21 04:33 Albumin 3.1 g/dL (3.9-5) L 08/23/21 04:33 Albumin/Globulin Ratio 1.1 % 08/23/21 04:33 Urine Opiates Screen Negative 08/20/21 18:05 Urine Methadone Screen Negative 08/20/21 18:05 Ur Barbiturates Screen Negative 08/20/21 18:05 Ur Phencyclidine Scrn Negative 08/20/21 18:05 Ur Amphetamines Screen Negative 08/20/21 18:05 U Benzodiazepines Scrn Negative 08/20/21 18:05 Urine Cocaine Screen Positive 08/20/21 18:05 U Marijuana (THC) Screen Positive 08/20/21 18:05 Drugs of Abuse Note Disclamer 08/20/21 18:05 Hernandez/IV: Voiding Method Toilet Active Medications - Current Medications Current Medications: Generic Name Dose Route Start Last Admin Trade Name Freq PRN Reason Stop Dose Admin Acetaminophen 650 mg 08/20/21 21:24 08/23/21 19:38 Acetaminophen 325 Mg Tab PO 650 mg Q4H PRN Administration Pain MILD(1-3)/Fever >100.5/[place] Alprazolam 0.5 mg 08/23/21 14:59 08/23/21 17:09 Alprazolam 0.5 Mg Tab PO 0.5 mg Q8H PRN Administration Anxiety Chlordiazepoxide HCl 50 mg 08/20/21 21:43 Chlordiazepoxide 25 Mg Cap PO Q1H PRN CIWA-Ar 8-15 Divalproex Sodium 250 mg 08/21/21 12:00 08/23/21 09:[address] 250 Mg Tab PO 250 mg BID FEDERICO Administration Doxepin HCl 10 mg 08/23/21 22:00 Doxepin 10 Mg Cap PO QHS FEDERICO Famotidine 20 mg 08/20/21 22:00 08/23/21 09:44 Famotidine 20 Mg/2 Ml Inj IV 20 mg BID FEDERICO Administration Fluoxetine HCl 40 mg 08/24/21 10:00 Fluoxetine 20 Mg Cap PO QDAY FEDERICO Heparin Sodium (Porcine) 5,000 unit 08/20/21 22:00 08/23/21 09:45 Heparin 5,000 Unit/1 Ml Vial SUB-Q 5,000 unit Q12HR FEDERICO Administration Hydralazine HCl 25 mg 08/23/21 14:00 08/23/21 19:39 Hydralazine 25 Mg Tab PO 25 mg TID FEDERICO Administration Dextrose/Sodium Chloride 1,000 mls @ 125 mls/hr 08/20/21 18:00 08/23/21 12:35 D5ns IV 125 mls/hr DIRECT FEDERICO Administration Lorazepam 2 mg 08/23/21 15:02 Lorazepam 2 Mg/Ml Vial IV Q4H PRN CIWA-Ar 8-15 Morphine Sulfate 2 mg 08/20/21 21:24 Morphine 2 Mg/1 Ml Inj IV Q4H PRN Pain, Moderate (4-6) Ondansetron HCl 4 mg 08/20/21 21:24 Ondansetron 4 Mg/2 Ml Inj IV Q8H PRN Nausea And Vomiting Risperidone 1 mg 08/22/21 14:00 08/23/21 09:44 Risperidone 1 Mg Tab PO 1 mg DAILY FEDERICO Administration Sodium Chloride 10 ml 08/20/21 22:00 08/23/21 09:45 Sodium Chloride 0.9% 10 Ml Flush Syringe IV 10 ml BID FEDERICO Administration Sodium Chloride 10 ml 08/20/21 21:24 Sodium Chloride 0.9% 10 Ml Flush Syringe IV PRN PRN LINE FLUSH
[2021-08-23] MEDS: DOXEPIN 10 MG CAP PO SCH (21:21)
[2021-08-24] MEDS: D5W/0.9% NACL 1,000 ML IV SCH (06:38)
--- NOTE | 2021-08-24 09:17 | Progress Note ---
Assessment and Plan Assessment and plan: Assessment and plan: --Acute toxic metabolic encephalopathy Secondary to drug overdose Hold the medications IV fluids, supportive care --Intentional overdose Mental health consult and psych consult Patient is hypotensive IV normal saline hold the medications Psych following -- Suicidal attempt; Suicidal watch, 1013 status Psych following, treat the underlying depression And anxiety. Supportive care --hypotension due to medication IV normal saline for now -- Mild hyponatremia/resolved Monitor electrolytes --Hypomagnesemia; Magnesium sulfate IV, monitor magnesium levels -Hypokalemia Supplemented, monitor electrolytes --Generalized anxiety disorder Will refer to psychiatry/mental health Anxiolytic medications --DVT prophylaxis On heparin and GI prophylaxis --Advance care planning Discussed with family about disease education, care plan, diagnosis, prognosis. Patient is full code. Family acknowledges understanding and agreement with care plan. +30 minutes. We will closely monitor the patient and adjust the management as needed 08/21/2021; psych evaluation recommendations noted and appreciated Patient is on 1013 status more alert and awake 08/22/2021; psych evaluation noted and appreciated Planning inpatient psych placement Continue 1013 status 08/23/2021; patient is more alert and awake Denies suicidal thoughts or ideation Psych following, 1013 status Continue current management 08/24/2021; hypomagnesemia, replenished with IV mag sulfate Monitor electrolytes, patient is medically stable for discharge. Disposition per psych History Interval history: I have seen and examined the patient at the bedside this morning Patient's chart and medications reviewed Patient is sitting in bed alert awake oriented, verbal Feels better, vital signs noted No new events reported by the nursing staff hander in in the room 1013 status Hospitalist Physical - Constitutional Vitals: Temp Pulse Resp BP Pulse Ox 97.4 F L 81 18 148/99 97 08/24/21 00:13 08/24/21 06:00 08/24/21 06:00 08/24/21 06:00 08/24/21 06:00 General appearance: Present: no acute distress, well-nourished, other (Depressed) - EENT Eyes: Present: PERRL, EOM intact - Neck Neck: Present: supple, normal ROM - Respiratory Respiratory effort: normal Respiratory: bilateral: diminished, negative: rales, rhonchi, wheezing - Cardiovascular Rhythm: regular Heart Sounds: Present: S1 & S2 - Extremities Extremities: no ischemia, No edema - Abdominal General gastrointestinal: soft, non-tender, non-distended, normal bowel sounds - Integumentary Integumentary: Present: clear, warm - Psychiatric Psychiatric: appropriate mood/affect, cooperative, other (Talkative and verbal) - Neurologic Neurologic: CNII-XII intact, moves all extremities HEART Score - HEART Score Age: 45-65 Risk factors: 1-2 risk factors Troponin: < normal limit - Critical Actions Critical Actions: 0-3 pts:0.9-1.7%risk of adverse cardiac event.Candidate for discharge Results - Labs CBC & Chem 7: 08/21/21 03:54 08/23/21 04:33 Labs: Laboratory Last Values WBC 5.8 K/mm3 (4.5-11.0) 08/21/21 03:54 RBC 4.06 M/mm3 (3.65-5.03) 08/21/21 03:54 Hgb 12.2 gm/dl (10.1-14.3) 08/21/21 03:54 Hct 37.3 % (30.3-42.9) 08/21/21 03:54 MCV 92 fl (79-97) 08/21/21 03:54 MCH 30 pg (28-32) 08/21/21 03:54 MCHC 33 % (30-34) 08/21/21 03:54 RDW 16.2 % (13.2-15.2) H 08/21/21 03:54 Plt Count 224 K/mm3 (140-440) 08/21/21 03:54 Lymph % (Auto) 40.1 % (13.4-35.0) H 08/21/21 03:54 Clarke % (Auto) 14.1 % (0.0-7.3) H 08/21/21 03:54 Eos % (Auto) 0.8 % (0.0-4.3) 08/21/21 03:54 Baso % (Auto) 0.5 % (0.0-1.8) 08/21/21 03:54 Lymph # (Auto) 2.3 K/mm3 (1.2-5.4) 08/21/21 03:54 Clarke # (Auto) 0.8 K/mm3 (0.0-0.8) 08/21/21 03:54 Eos # (Auto) 0.0 K/mm3 (0.0-0.4) 08/21/21 03:54 Baso # (Auto) 0.0 K/mm3 (0.0-0.1) 08/21/21 03:54 Seg Neutrophils % 44.5 % (40.0-70.0) 08/21/21 03:54 Seg Neutrophils # 2.6 K/mm3 (1.8-7.7) 08/21/21 03:54 Sodium 140 mmol/L (137-145) 08/23/21 04:33 Potassium 3.6 mmol/L (3.6-5.0) 08/23/21 04:33 Chloride 108.2 mmol/L (98-107) H 08/23/21 04:33 Carbon Dioxide 23 mmol/L (22-30) 08/23/21 04:33 Anion Gap 12 mmol/L 08/23/21 04:33 BUN 2 mg/dL (7-17) L 08/23/21 04:33 Creatinine 0.5 mg/dL (0.6-1.2) L 08/23/21 04:33 Estimated GFR > 60 ml/min 08/23/21 04:33 BUN/Creatinine Ratio 4 % 08/23/21 04:33 Glucose 92 mg/dL (65-100) 08/23/21 04:33 Calcium 8.0 mg/dL (8.4-10.2) L 08/23/21 04:33 Magnesium 1.60 mg/dL (1.7-2.3) L 08/23/21 04:33 Total Bilirubin < 0.20 mg/dL (0.1-1.2) 08/23/21 04:33 AST 49 units/L (5-40) H 08/23/21 04:33 ALT 39 units/L (7-56) 08/23/21 04:33 Alkaline Phosphatase 98 units/L (35-129) 08/23/21 04:33 Total Protein 6.0 g/dL (6.3-8.2) L 08/23/21 04:33 Albumin 3.1 g/dL (3.9-5) L 08/23/21 04:33 Albumin/Globulin Ratio 1.1 % 08/23/21 04:33 Urine Opiates Screen Negative 08/20/21 18:05 Urine Methadone Screen Negative 08/20/21 18:05 Ur Barbiturates Screen Negative 08/20/21 18:05 Ur Phencyclidine Scrn Negative 08/20/21 18:05 Ur Amphetamines Screen Negative 08/20/21 18:05 U Benzodiazepines Scrn Negative 08/20/21 18:05 Urine Cocaine Screen Positive 08/20/21 18:05 U Marijuana (THC) Screen Positive 08/20/21 18:05 Drugs of Abuse Note Disclamer 08/20/21 18:05 Hernandez/IV: Voiding Method Toilet Active Medications - Current Medications Current Medications: Generic Name Dose Route Start Last Admin Trade Name Freq PRN Reason Stop Dose Admin Acetaminophen 650 mg 08/20/21 21:24 08/23/21 19:38 Acetaminophen 325 Mg Tab PO 650 mg Q4H PRN Administration Pain MILD(1-3)/Fever >100.5/SHERWOOD Alprazolam 0.5 mg 08/23/21 14:59 08/23/21 17:09 Alprazolam 0.5 Mg Tab PO 0.5 mg Q8H PRN Administration Anxiety Chlordiazepoxide HCl 50 mg 08/20/21 21:43 Chlordiazepoxide 25 Mg Cap PO Q1H PRN CIWA-Ar 8-15 Divalproex Sodium 250 mg 08/21/21 12:00 08/23/21 21:[address] 250 Mg Tab PO 250 mg BID FEDERICO Administration Doxepin HCl 10 mg 08/23/21 22:00 08/23/21 21:21 Doxepin 10 Mg Cap PO 10 mg QHS FEDERICO Administration Fluoxetine HCl 40 mg 08/24/21 10:00 Fluoxetine 20 Mg Cap PO QDAY FEDERICO Heparin Sodium (Porcine) 5,000 unit 08/20/21 22:00 08/23/21 21:23 Heparin 5,000 Unit/1 Ml Vial SUB-Q 5,000 unit Q12HR FEDERICO Administration Hydralazine HCl 25 mg 08/23/21 14:00 08/23/21 19:39 Hydralazine 25 Mg Tab PO 25 mg TID FEDERICO Administration Magnesium Sulfate 2 gm in 50 mls @ 25 mls/hr 08/24/21 09:16 Magnesium Sulfate 2gm/50ml IV 08/24/21 11:15 ONCE ONE Lorazepam 2 mg 08/23/21 15:02 Lorazepam 2 Mg/Ml Vial IV Q4H PRN CIWA-Ar 8-15 Morphine Sulfate 2 mg 08/20/21 21:24 Morphine 2 Mg/1 Ml Inj IV Q4H PRN Pain, Moderate (4-6) Ondansetron HCl 4 mg 08/20/21 21:24 Ondansetron 4 Mg/2 Ml Inj IV Q8H PRN Nausea And Vomiting Risperidone 1 mg 08/22/21 14:00 08/23/21 09:44 Risperidone 1 Mg Tab PO 1 mg DAILY FEDERICO Administration Sodium Chloride 10 ml 08/20/21 22:00 08/24/21 00:01 Sodium Chloride 0.9% 10 Ml Flush Syringe IV 10 ml BID FEDERICO Administration Sodium Chloride 10 ml 08/20/21 21:24 Sodium Chloride 0.9% 10 Ml Flush Syringe IV PRN PRN LINE FLUSH
[2021-08-24] MEDS: risperiDONE 1 MG TAB PO SCH (09:41)
[2021-08-24] MEDS: FLUoxetine 20 MG CAP PO SCH (09:41)
[2021-08-24] MEDS: DIVALPROEX DR 250 MG TAB PO SCH ×2 (09:41→21:52)
[2021-08-24] MEDS: hydrALAZINE 25 MG TAB PO SCH ×3 (09:41→20:03)
[2021-08-24] MEDS: ACETAMINOPHEN 325 MG TAB PO PRN ×2 (09:41→20:03)
[2021-08-24] MEDS: HEPARIN 5,000 UNIT/1 ML VIAL SUB-Q SCH ×2 (09:42→21:53)
[2021-08-24] MEDS ORDERED: MAGNESIUM SULFATE 2 GM/50 ML BAG IV ONE (10:00)
--- NOTE | 2021-08-24 11:27 | Progress Note ---
Subjective - Reason for Consult Consult date: 08/24/21 Reason for consult: intentional OD - Chief Complaint Chief complaint: The patient was seen today. She is talkative as usual. She says she is doing good and feels lucid. The patient says she still hears the voices, but she prays and stays occupied to keep from hearing them. She says the voices tell her about things that happened in the past. She also states they tell her "sometimes to hurt people." She says "but I'm not a fool. I would never hurt nobody. I don't want to end up in senior care." The patient denies SI/HI. She says she's been to inpatient facilities and "they are awful in [place]." The patient says she has to get home and pack and move out of her current home. She says she's moving in her her mother. The patient says "I have my sister, neighbor and my mom. They will be right there and will not let nothing happen to me." Will continue to recommend inpatient psychiatric inpatient treatment at this time, since the patient did have an intentional overdose. Will continue to follow the patient's progress during her medical stay. Her disposition may possibly change if psychiatric condition continues to improve. REVIEW OF SYSTEMS Constitutional: Negative for weight loss ENT: Negative for stridor Respiratory: Negative for cough or hemoptysis All other systems reviewed and are negative MENTAL STATUS EXAMINATION General Appearance and Behavior: Age appropriate, good hygiene, wearing appropriate clothes, good eye contact, cooperative Cooperation: Participating/engaged Psychomotor Behavior: unremarkable and within normal limits Mood: better Affect and affective range: congruent with mood Thought Process: goal oriented Thought Content: hallucinations Speech: hyperverbal Suicidal Ideation: Denies Homicidal Ideation: Denies Hallucinations: Auditory Impulse Control: Unimpaired Insight and Judgment: Limited insight and poor judgment Memory: Normal Attention: Normal Orientation: Alert, oriented Assessment Schizophrenia, bipolar type Intentional Overdose Treatment Plan 1013 Prozac 40mg po daily Xanax 0.5mg po q8h prn anxiety Doxepin 10m gpo qhs Continue Risperidone Sitter: Defer to primary Medical: Per primary Disposition: Recommend acute inpatient treatment. Will follow. Thanks Case discussed with Dr. Silva Mental Status Exam - Vital signs Last Vital Signs Temp 97.4 F L 08/24/21 00:13 Pulse 81 08/24/21 06:00 Resp 18 08/24/21 06:00 BP 148/99 08/24/21 06:00 Pulse Ox 97 08/24/21 06:00
--- NOTE | 2021-08-24 18:10 | Progress Note ---
Assessment and Plan Assessment and plan: Assessment and plan: --Acute toxic metabolic encephalopathy/resolved Secondary to drug overdose Hold the medications IV fluids, supportive care --Intentional overdose/stable Mental health consult and psych consult Patient is hypotensive IV normal saline hold the medications Psych following -- Suicidal attempt; Suicidal watch, 1013 status Psych following, treat the underlying depression And anxiety. Supportive care --hypotension due to medication/resolved IV normal saline for now -- Mild hyponatremia/resolved Monitor electrolytes --Hypomagnesemia; Magnesium sulfate IV, monitor magnesium levels -Hypokalemia/corrected Supplemented, monitor electrolytes --Generalized anxiety disorder Will refer to psychiatry/mental health Anxiolytic medications --DVT prophylaxis On heparin and GI prophylaxis --Advance care planning Discussed with family about disease education, care plan, diagnosis, prognosis. Patient is full code. Family acknowledges understanding and agreement with care plan. +30 minutes. We will closely monitor the patient and adjust the management as needed 08/21/2021; psych evaluation recommendations noted and appreciated Patient is on 1013 status more alert and awake 08/22/2021; psych evaluation noted and appreciated Planning inpatient psych placement Continue 1013 status 08/23/2021; patient is more alert and awake Denies suicidal thoughts or ideation Psych following, 1013 status Continue current management 08/24/2021; hypomagnesemia, replenished with IV mag sulfate Monitor electrolytes, patient is medically stable for discharge. Disposition per psyc 08/25/2021; medically cleared for discharge Disposition per psych, patient 1013 status Hospitalist Physical - Constitutional Vitals: Temp Pulse Resp BP Pulse Ox 98.7 F 95 H 18 160/105 98 08/24/21 16:10 08/24/21 16:10 08/24/21 16:10 08/24/21 16:10 08/24/21 16:10 General appearance: Present: no acute distress, well-nourished, other (Depressed) HEART Score - HEART Score Age: 45-65 Risk factors: 1-2 risk factors Troponin: < normal limit - Critical Actions Critical Actions: 0-3 pts:0.9-1.7%risk of adverse cardiac event.Candidate for discharge Results - Labs CBC & Chem 7: 08/21/21 03:54 08/23/21 04:33 Labs: Laboratory Last Values WBC 5.8 K/mm3 (4.5-11.0) 08/21/21 03:54 RBC 4.06 M/mm3 (3.65-5.03) 08/21/21 03:54 Hgb 12.2 gm/dl (10.1-14.3) 08/21/21 03:54 Hct 37.3 % (30.3-42.9) 08/21/21 03:54 MCV 92 fl (79-97) 08/21/21 03:54 MCH 30 pg (28-32) 08/21/21 03:54 MCHC 33 % (30-34) 08/21/21 03:54 RDW 16.2 % (13.2-15.2) H 08/21/21 03:54 Plt Count 224 K/mm3 (140-440) 08/21/21 03:54 Lymph % (Auto) 40.1 % (13.4-35.0) H 08/21/21 03:54 Duchesne % (Auto) 14.1 % (0.0-7.3) H 08/21/21 03:54 Eos % (Auto) 0.8 % (0.0-4.3) 08/21/21 03:54 Baso % (Auto) 0.5 % (0.0-1.8) 08/21/21 03:54 Lymph # (Auto) 2.3 K/mm3 (1.2-5.4) 08/21/21 03:54 Duchesne # (Auto) 0.8 K/mm3 (0.0-0.8) 08/21/21 03:54 Eos # (Auto) 0.0 K/mm3 (0.0-0.4) 08/21/21 03:54 Baso # (Auto) 0.0 K/mm3 (0.0-0.1) 08/21/21 03:54 Seg Neutrophils % 44.5 % (40.0-70.0) 08/21/21 03:54 Seg Neutrophils # 2.6 K/mm3 (1.8-7.7) 08/21/21 03:54 Sodium 140 mmol/L (137-145) 08/23/21 04:33 Potassium 3.6 mmol/L (3.6-5.0) 08/23/21 04:33 Chloride 108.2 mmol/L (98-107) H 08/23/21 04:33 Carbon Dioxide 23 mmol/L (22-30) 08/23/21 04:33 Anion Gap 12 mmol/L 08/23/21 04:33 BUN 2 mg/dL (7-17) L 08/23/21 04:33 Creatinine 0.5 mg/dL (0.6-1.2) L 08/23/21 04:33 Estimated GFR > 60 ml/min 08/23/21 04:33 BUN/Creatinine Ratio 4 % 08/23/21 04:33 Glucose 92 mg/dL (65-100) 08/23/21 04:33 Calcium 8.0 mg/dL (8.4-10.2) L 08/23/21 04:33 Magnesium 1.60 mg/dL (1.7-2.3) L 08/23/21 04:33 Total Bilirubin < 0.20 mg/dL (0.1-1.2) 08/23/21 04:33 AST 49 units/L (5-40) H 08/23/21 04:33 ALT 39 units/L (7-56) 08/23/21 04:33 Alkaline Phosphatase 98 units/L (35-129) 08/23/21 04:33 Total Protein 6.0 g/dL (6.3-8.2) L 08/23/21 04:33 Albumin 3.1 g/dL (3.9-5) L 08/23/21 04:33 Albumin/Globulin Ratio 1.1 % 08/23/21 04:33 Urine Opiates Screen Negative 08/20/21 18:05 Urine Methadone Screen Negative 08/20/21 18:05 Ur Barbiturates Screen Negative 08/20/21 18:05 Ur Phencyclidine Scrn Negative 08/20/21 18:05 Ur Amphetamines Screen Negative 08/20/21 18:05 U Benzodiazepines Scrn Negative 08/20/21 18:05 Urine Cocaine Screen Positive 08/20/21 18:05 U Marijuana (THC) Screen Positive 08/20/21 18:05 Drugs of Abuse Note Disclamer 08/20/21 18:05 Hernandez/IV: Voiding Method Toilet Active Medications - Current Medications Current Medications: Generic Name Dose Route Start Last Admin Trade Name Freq PRN Reason Stop Dose Admin Acetaminophen 650 mg 08/20/21 21:24 08/24/21 09:41 Acetaminophen 325 Mg Tab PO 650 mg Q4H PRN Administration Pain MILD(1-3)/Fever >100.5/[place]ER[place]OD Alprazolam 0.5 mg 08/23/21 14:59 08/23/21 17:09 Alprazolam 0.5 Mg Tab PO 0.5 mg Q8H PRN Administration Anxiety Chlordiazepoxide HCl 50 mg 08/20/21 21:43 Chlordiazepoxide 25 Mg Cap PO Q1H PRN CIWA-Ar 8-15 Divalproex Sodium 250 mg 08/21/21 12:00 08/24/21 09:[address] 250 Mg Tab PO 250 mg BID FEDERICO Administration Doxepin HCl 10 mg 08/23/21 22:00 08/23/21 21:21 Doxepin 10 Mg Cap PO 10 mg QHS FEDERICO Administration Fluoxetine HCl 40 mg 08/24/21 10:00 08/24/21 09:41 Fluoxetine 20 Mg Cap PO 40 mg QDAY FEDERICO Administration Heparin Sodium (Porcine) 5,000 unit 08/20/21 22:00 08/24/21 09:42 Heparin 5,000 Unit/1 Ml Vial SUB-Q 5,000 unit Q12HR FEDERICO Administration Hydralazine HCl 25 mg 08/23/21 14:00 08/24/21 17:39 Hydralazine 25 Mg Tab PO 25 mg TID FEDERICO Administration Lorazepam 2 mg 08/23/21 15:02 Lorazepam 2 Mg/Ml Vial IV Q4H PRN CIWA-Ar 8-15 Morphine Sulfate 2 mg 08/20/21 21:24 Morphine 2 Mg/1 Ml Inj IV Q4H PRN Pain, Moderate (4-6) Ondansetron HCl 4 mg 08/20/21 21:24 Ondansetron 4 Mg/2 Ml Inj IV Q8H PRN Nausea And Vomiting Risperidone 1 mg 08/22/21 14:00 08/24/21 09:41 Risperidone 1 Mg Tab PO 1 mg DAILY FEDERICO Administration Sodium Chloride 10 ml 08/20/21 22:00 08/24/21 11:27 Sodium Chloride 0.9% 10 Ml Flush Syringe IV 10 ml BID FEDERICO Administration Sodium Chloride 10 ml 08/20/21 21:24 Sodium Chloride 0.9% 10 Ml Flush Syringe IV PRN PRN LINE FLUSH
[2021-08-24] MEDS: DOXEPIN 10 MG CAP PO SCH (21:52)
[2021-08-25 08:05] VITALS: BP 133/95
[2021-08-25] MEDS: ACETAMINOPHEN 325 MG TAB PO PRN (10:02)
[2021-08-25] MEDS: DIVALPROEX DR 250 MG TAB PO SCH (10:02)
[2021-08-25] MEDS: hydrALAZINE 25 MG TAB PO SCH (10:02)
[2021-08-25] MEDS: FLUoxetine 20 MG CAP PO SCH (10:02)
[2021-08-25] MEDS: HEPARIN 5,000 UNIT/1 ML VIAL SUB-Q SCH (10:02)
[2021-08-25] MEDS: risperiDONE 1 MG TAB PO SCH (10:02)
[2021-08-25] MEDS: ALPRAZolam 0.5 MG TAB PO PRN (10:02)
--- NOTE | 2021-08-25 13:00 | Progress Note ---
Subjective - Reason for Consult Consult date: 08/25/21 Reason for consult: OD - Chief Complaint Chief complaint: The patient was seen today. The patient was seen today. She is talkative. She is calm, pleasant and cooperative. The patient says she's been praying and reading her Bible. She says she's also been talking to staff members. She says "she knows what she has to do, and she will never end up back in the hospital for that reason." The patient says "I will be 52 next year, and I want to live to make it." She says "I told my neighbors to call 911 so that tells you I wanted to live and was not trying to kill myself." She says reading her Bible last night helped with the voices. She says "I don't even hear them today. I'm bigger than theses voices and it's nothing that will make me do what I did again." She says she ended a relationship with her boyfriend. The patient says "anything and anybody that is not good for me I'm getting rid of it." She says she has to pack and be out of her apartment. The patient says she is going to live with her mother. She says "I have a good support system." Will give the patient scripts and resources to follow up on an outpatient basis. The laboratory asst will further discuss safety plan. REVIEW OF SYSTEMS Constitutional: Negative for weight loss ENT: Negative for stridor Respiratory: Negative for cough or hemoptysis All other systems reviewed and are negative MENTAL STATUS EXAMINATION General Appearance and Behavior: Age appropriate, good hygiene, wearing appropriate clothes, good eye contact, cooperative Cooperation: Participating/engaged Psychomotor Behavior: unremarkable and within normal limits Mood: better Affect and affective range: congruent with mood Thought Process: goal oriented Thought Content: hallucinations Speech: hyperverbal Suicidal Ideation: Denies Homicidal Ideation: Denies Hallucinations: Auditory Impulse Control: Unimpaired Insight and Judgment: Limited insight and poor judgment Memory: Normal Attention: Normal Orientation: Alert, oriented Assessment Schizophrenia, bipolar type Intentional Overdose Treatment Plan d/c 1013 Prozac 40mg po daily Doxepin 10m gpo qhs Risperidone 1mg daily Depak[address] 150mg po BID Sitter: Defer to primary Medical: Per primary Disposition: Do not recommend acute inpatient treatment. The patient understands that if SI/HI or any fear of endangerment arise she is to seek immediate assistance. The laboratory asst to further discuss safety plan and give the patient all necessary resources Will sign off. Thanks Case discussed with Dr. Silva Mental Status Exam - Vital signs Last Vital Signs Temp 98.2 F 08/25/21 05:58 Pulse 96 H 08/25/21 10:00 Resp 16 08/25/21 05:58 BP 133/95 08/25/21 07:40 Pulse Ox 99 08/25/21 10:00
--- NOTE | 2021-08-25 14:49 | Discharge Summary ---
Providers - Providers Date of Admission: 08/20/21 21:24 Date of discharge: 08/25/21 Attending physician: YESSI UNGER 08/20/21 21:24 Consult to Physician [CONS] Routine Comment: Consulting Provider: ANGEL CASTORENA Physician Instructions: Reason For Exam: Drug overdose 08/20/21 21:38 Consult to Mental Health [CONS] Routine Reason For Exam: Drug overdose Primary care physician: CANDY WAFFLE ASSEMBLER Hospitalization Reason for admission: Intentional drug overdose/toxic metabolic encephalopathy Condition: Stable Hospital course: 51-year-old female patient with significant past medical history of hyper pretension, generalized anxiety disorder, depression was admitted through emergency room with altered level of consciousness brought by EMS for overdose patient overdosed on Xanax clonidine propranolol amlodipine, fluoxetine Patient was lethargic was given Narcan . Initial work-up with was consistent with hypotension, hyponatremia, multiple electrolyte abnormalities. Patient was evaluated by psychiatric, placed on 1013 status, suicidal watch. Psych optimized medications, patient's symptoms slowly but gradually improved Today. Patient is comfortable, no new complaints, vital signs stable, physical examination prior to discharge is unremarkable Patient is hemodynamically and clinically stable for discharge Psychiatrist has given counseling, given information about the resources and advised the patient to follow-up with behavioral health/psychiatrist per schedule Advised to see primary care physician upon discharge for her medical needs. Patient is stable at discharge Discharge diagnosis: --Acute toxic metabolic encephalopathy/resolved Secondary to drug overdose Hold the medications IV fluids, supportive care --Intentional overdose/stable Mental health consult and psych consult Patient is hypotensive IV normal saline hold the medications Psych following -- Suicidal attempt; Suicidal watch, 1013 status Psych following, treat the underlying depression And anxiety. Supportive care --hypotension due to medication/resolved IV normal saline for now -- Mild hyponatremia/resolved Monitor electrolytes --Hypomagnesemia; Magnesium sulfate IV, monitor magnesium levels -Hypokalemia/corrected Supplemented, monitor electrolytes --Moderate protein calorie malnutrition; nutrition supplements --Generalized anxiety disorder Will refer to psychiatry/mental health Anxiolytic medications Stable at discharge Disposition: 01 HOME / SELF CARE / HOMELESS Final Discharge Diagnosis (Prints w/discharge instructions): Acute toxic metabolic encephalopathy/resolved. Intentional drug overdose/now stable. Hypotension/resolved. Mild hyponatremia/improved. Hypomagnesemia/corrected. Hypokalemia/resolved. Moderate protein calorie malnutrition. Generalized anxiety disorder Time spent for discharge: 35 MIN Core Measure Documentation - Palliative Care Palliative Care/ Comfort Measures: Not Applicable - Core Measures Any of the following diagnoses?: none Exam - Constitutional Vitals: Temp Pulse Resp BP Pulse Ox 98.2 F 96 H 16 133/95 99 08/25/21 05:58 08/25/21 10:00 08/25/21 05:58 08/25/21 07:40 08/25/21 10:00 General appearance: Present: no acute distress, well-nourished - EENT Eyes: Present: PERRL, EOM intact - Neck Neck: Present: supple, normal ROM - Respiratory Respiratory effort: normal Respiratory: bilateral: diminished, negative: rales, rhonchi, wheezing - Cardiovascular Rhythm: regular Heart Sounds: Present: S1 & S2 - Extremities Extremities: no ischemia, No edema - Abdominal General gastrointestinal: Present: soft, non-tender, non-distended, normal bowel sounds - Integumentary Integumentary: Present: clear, warm - Musculoskeletal Musculoskeletal: strength equal bilaterally - Psychiatric Psychiatric: appropriate mood/affect, cooperative - Neurologic Neurologic: CNII-XII intact, moves all extremities Plan Activity: no restrictions Diet: regular Special Instructions: smoking cessation Additional Instructions: History quit recreational drug use. Advised to quit alcohol intake. Smoking cessation counseling done nicotine patch as needed. If you have worsening symptoms contact MD or go to the nearest emergency room as needed. Advised to see private psychiatrist per schedule. Advised to see primary care physician for your medical needs Follow up with: MARY ANDINO MD [Primary Care Provider] - 7 Days ANGEL CASTORENA MD [Staff Physician] - 7 Days Prescriptions: Divalproex [DepaKOFOREST FUNEZ] 250 mg PO BID #60 tablet FLUoxetine HCL [PROzac] 40 mg PO QAM #30 cap risperiDONE [RisperDAL ORAL LIQD] 1 mg PO DAILY #30 ml Doxepin [SINEquan] 10 mg PO QHS #30 capsule
== END 2021-08-25 18:15 | disposition home or self-care (01) | DRG 917 ==
LOC: ED 15:35 → 4A 21:24
PROVIDERS: ADMIT Internal Medicine; ATTEND Internal Medicine
DX: T42.4X2A Poisoning by benzodiazepines, intentional self-harm, initial encounter (principal); G92.8 Other toxic encephalopathy; E87.1 Hypo-osmolality and hyponatremia; T46.5X2A Poisoning by other antihypertensive drugs, intentional self-harm, initial encounter; T44.7X2A Poisoning by beta-adrenoreceptor antagonists, intentional self-harm, initial encounter; T46.1X2A Poisoning by calcium-channel blockers, intentional self-harm, initial encounter; Y92.89 Other specified places as the place of occurrence of the external cause; I95.2 Hypotension due to drugs; Z82.49 Family history of ischemic heart disease and other diseases of the circulatory system; F41.1 Generalized anxiety disorder; F32.9 Major depressive disorder, single episode, unspecified; E87.6 Hypokalemia; F20.89 Other schizophrenia; E83.42 Hypomagnesemia; E44.0 Moderate protein-calorie malnutrition; Z68.24 Body mass index [BMI] 24.0-24.9, adult
CPT/HCPCS: 36415; 80053; 80307; 83735; 85025; 93005; 99406; G0378; J3490; J1610; J1644; J2310; J3475; J7030; J7042

== ENCOUNTER 2021-09-13 05:17 | Emergency (ER) | payer MEDICAID ==
[2021-09-13 08:29] LABS: Blood Urea Nitrogen 7 mg/dL (7-17); Calcium 10.1 mg/dL (8.4-10.2); Hemolysis Index 0
[2021-09-13 08:38] LABS: BUN/Creatinine Ratio 10
[2021-09-13 09:21] LABS: Basophils % (Auto) 0.2 % (0.0-1.8); Eosinophils # (Auto) 0.1 K/mm3 (0.0-0.4); Hematocrit 39.4 % (30.3-42.9); Hemoglobin 12.9 gm/dl (10.1-14.3); Lymphocytes # (Auto) 2.8 K/mm3 (1.2-5.4); Lymphocytes % (Auto) 43.2 % (13.4-35.0); Mean Corpuscular HGB Conc 33 % (30-34); Mean Corpuscular Volume 91 fl (79-97); Monocytes # (Auto) 0.6 K/mm3 (0.0-0.8); Monocytes % (Auto) 8.8 % (0.0-7.3); Platelet Count 350 K/mm3 (140-440); Red Blood Count 4.35 M/mm3 (3.65-5.03); Red Cell Distribution Width 16.4 % (13.2-15.2)
[2021-09-13] MEDS ORDERED: ALPRAZolam 0.5 MG TAB PO PRN (15:11)
[2021-09-13] MEDS ORDERED: risperiDONE 1 MG TAB PO ONE (15:16)
--- NOTE | 2021-09-13 15:23 | Emergency Department Report ---
ED Psych HPI - General Chief Complaint: Psych Stated Complaint: SUICIDAL/HEARING VOICES/MH EVAL Time Seen by Provider: 09/13/21 06:57 Source: patient, EMS Mode of arrival: Ambulatory Limitations: No Limitations - History of Present Illness Initial Comments: 51-year-old female with multiple medical comorbidities presents for evaluation of several days of suicidal ideation. She states she is hearing voices telling her to cut herself to . Patient reports "I just do not want to live anymore and I Michelle 1 way or another." Patient states she has been off her medications for several days. She last attempted suicide May 2021 and she states she was taken to [facility] in [place]. She states she was admitted for 24 hours and subsequently discharged. She reports "I have a lot of stressors in my life right now, and I think that was causing it." Pain 0-10. She reports she last used cocaine 1 day ago and last used marijuana 1 day ago as well. MD Complaint: suicidal ideation, other -: Gradual Associated Psychiatric Symptoms: depression, suicidal ideation, racing thoughts, auditory hallucinations History of same: Yes Quality: constant Improves With: none Worsens With: none Context: recent drug abuse Associated Symptoms: denies other symptoms Treatments Prior to Arrival: none If Self Harm: admits thoughts of - Related Data Home Medications Medication Instructions Recorded Confirmed Last Taken ALPRAZolam [Xanax TAB] 0.5 mg PO DAILY PRN 08/21/21 09/13/21 Unknown OLANZapine [Olanzapine] 10 mg PO HS 08/21/21 09/13/21 Unknown cloNIDine [Catapres] 0.1 mg PO QHS 08/21/21 09/13/21 Unknown Previous Rx's Medication Instructions Recorded Last Taken Type Divalproex Dr [DepaKOTE DR] 250 mg PO BID #60 tablet 08/25/21 Unknown Rx Doxepin [SINEquan] 10 mg PO QHS #30 capsule 08/25/21 Unknown Rx FLUoxetine HCL [PROzac] 40 mg PO QAM #30 cap 08/25/21 Unknown Rx risperiDONE [RisperDAL ORAL LIQD] 1 mg PO DAILY #30 ml 08/25/21 Unknown Rx Allergies Allergy/AdvReac Type Severity Reaction Status Date / Time No Known Allergies Allergy Unverified 08/21/21 10:32 ED Review of Systems ROS: Stated complaint: SUICIDAL/HEARING VOICES/MH EVAL Other details as noted in HPI Constitutional: no symptoms reported Eyes: as per HPI ENT: as per HPI Respiratory: no symptoms reported Cardiovascular: denies: chest pain, palpitations, dyspnea on exertion, orthopnea, edema, syncope, paroxysmal nocturnal dyspnea Endocrine: see HPI. denies: excessive sweating, flushing, intolerance to cold, intolerance to heat, increased hunger, increased thirst, increased urine, un explained weight loss Gastrointestinal: denies: abdominal pain, nausea, vomiting, constipation, hematemesis, melena, hematochezia Genitourinary: denies: urgency, dysuria, frequency, hematuria, discharge, abnormal menses, dyspareunia, other Musculoskeletal: denies: back pain, joint swelling, arthralgia, myalgia Skin: as per HPI. denies: rash, lesions, change in color, change in hair/nails, pruritus Neurological: headache, weakness, abnormal gait, vertigo, other Psychiatric: denies: anxiety, depression, auditory hallucinations, visual hallucinations, homicidal thoughts, suicidal thoughts Hematological/Lymphatic: denies: easy bleeding, easy bruising ED Past Medical Hx - Past Medical History Previous Medical History?: Yes Hx Hypertension: Yes Hx Psychiatric Treatment: Yes (Schizophrenia) Additional medical history: Uterine Fibroids - Surgical History Past Surgical History?: Yes Additional Surgical History: D&C, Myomectomy, Oral Surgery - Social History Smoking Status: Current Every Day Smoker Substance Use Type: Marijuana - Medications Home Medications: Home Medications Medication Instructions Recorded Confirmed Last Taken Type ALPRAZolam [Xanax TAB] 0.5 mg PO DAILY PRN 08/21/21 09/13/21 Unknown History OLANZapine [Olanzapine] 10 mg PO HS 08/21/21 09/13/21 Unknown History cloNIDine [Catapres] 0.1 mg PO QHS 08/21/21 09/13/[address] [Ronnell FUNEZ] 250 mg PO BID #60 tablet 08/25/21 09/13/21 Unknown Rx Doxepin [SINEquan] 10 mg PO QHS #30 capsule 08/25/21 09/13/21 Unknown Rx FLUoxetine HCL [PROzac] 40 mg PO QAM #30 cap 08/25/21 09/13/21 Unknown Rx risperiDONE [RisperDAL ORAL LIQD] 1 mg PO DAILY #30 ml 08/25/21 09/13/21 Unknown Rx ED Physical Exam - General Limitations: No Limitations General appearance: alert, in no apparent distress - Head Head exam: Present: atraumatic, normocephalic, normal inspection - Eye Eye exam: Present: normal appearance, PERRL, EOMI - ENT ENT exam: Present: normal exam, normal orophraynx, mucous membranes moist - Neck Neck exam: Present: normal inspection, full ROM - Respiratory Respiratory exam: Present: normal lung sounds bilaterally - Cardiovascular Cardiovascular Exam: Present: regular rate, normal rhythm - GI/Abdominal GI/Abdominal exam: Present: soft, normal bowel sounds. Absent: distended, tenderness, guarding, rebound, rigid, diminished bowel sounds, hyperactive bowel sounds, hypoactive bowel sounds, organomegaly, mass, bruit, pulsatile mass, hernia, other - Extremities Exam Extremities exam: Present: normal inspection, full ROM, normal capillary refill - Back Exam Back exam: Present: normal inspection, full ROM, tenderness - Neurological Exam Neurological exam: Present: alert, oriented X3, CN II-XII intact, normal gait, reflexes normal - Psychiatric Psychiatric exam: Present: normal affect, normal mood, suicidal ideation - Skin Skin exam: Present: warm, dry, intact, normal color ED Course Vital Signs 09/13/21 09/13/21 09/13/21 05:19 06:49 09:31 Temperature 98 F 98.6 F Pulse Rate 97 H 65 Respiratory 18 18 Rate Blood Pressure 128/92 Blood Pressure 88/63 [Left] O2 Sat by Pulse 99 100 99 Oximetry 09/13/21 09:33 Temperature Pulse Rate Respiratory Rate Blood Pressure Blood Pressure [Left] O2 Sat by Pulse 99 Oximetry ED Medical Decision Making - Lab Data Result diagrams: 09/13/21 07:01 09/13/21 07:01 - Medical Decision Making 51-year-old female presents with active suicidal ideation. Vital signs stable. Urine drug screen pending. Serum labs unremarkable. 1013 signed. Patient entered in for her routine regular medication. Patient to await formal evaluation by psychiatry for inpatient admission to an acute psychiatric hospitalization institution. Critical care attestation.: If time is entered above; I have spent that time in minutes in the direct care of this critically ill patient, excluding procedure time. ED Disposition Clinical Impression: Suicidal ideation, Auditory hallucinations Disposition: 02 SHORT TERM HOSPITAL Is pt being admited?: No Does the pt Need Aspirin: No Condition: Stable Referrals: PRIMARY CARE, [Primary Care Provider] - 3-5 Days
[2021-09-13] MEDS ORDERED: DIVALPROEX DR 250 MG TAB PO ONE (16:00)
[2021-09-13] MEDS ORDERED: cloNIDine 0.1 MG TAB PO NR (16:00)
[2021-09-13] MEDS ORDERED: FLUoxetine 20 MG CAP PO ONE (16:00)
[2021-09-13] MEDS ORDERED: FLUoxetine 20 MG CAP PO NR (16:00)
[2021-09-13] MEDS ORDERED: cloNIDine 0.1 MG TAB PO ONE (16:00)
--- NOTE | 2021-09-13 16:02 | History and Physical Report ---
GP History & Physical - History of Present Illness Date of admission: 09/13/21 Date of Examination: 09/13/21 Reason for Admission: Danger to self, Severe anxiety/depression, Unable to care for self Chief Complaint: SI History of Present Illness: GP History & Physical - History of Present Illness Date of admission: 09/13/21 Date of Examination: 09/13/21 Reason for Admission: Danger to self, Unable to care for self Chief Complaint: SI History of Present Illness: Admission Note 51 year old female patient seen in the ER today. Patient states she is here to " Take my medications" " Can't seem to drown out the noise". Patient states that she is off her medications and would need to get back on them. Patient has a hx of Schizophrenia and was on Depakote, Prozac, Xanax, Zyprexa, and propranolol. Patient is currently unemployed. HPI PAST PSYCHIATRIC HISTORY: Diagnoses: Schizophrenia Suicide attempts or Self-harm behavior: Yes Prior psychiatric hospitalizations:Yes (August) Substance Abuse history:Marijuana Previous psychiatric medications tried: Yes Outpatient treatment: Yes PAST MEDICAL HISTORY: Family Psychiatric History: None reported or documented SOCIAL HISTORY Marital Status: Single Living Arrangements: Employment Status: unemployed Access to guns/weapons: No Education: History of Abuse: Legal History: Denies REVIEW OF SYSTEMS Constitutional: Negative for weight loss ENT: Negative for stridor Respiratory: Negative for cough or hemoptysis All other systems reviewed and are negative Diagnoses:Schizophrenia Treatment Plan Patient will be admitted for inpatient psychiatric evaluation, medication adjustment and close monitoring The patient's behavior, mood, sleep and appetite will be closely monitored. Patient will be enrolled in individual and group therapeutic sessions and encouraged to attend. Patient will be provided with a safe and structured environment. Patient's physical health needs will be addressed by the Hospitalist. Hospitalist Consulted Labs including CBC, CMP, Lipid profile and Hemoglobin A1C ordered Social Assessment will be completed and the Tester V[employer] Equipment will work with patient and family to ensure a suitable and safe disposition Medication adjustment will be made as clinically indicated Usual Wellness Muslim/Preservation: - Start Trazodone 50 mg po QHS The patient agreed on the treatment plan, understood the risk, benefit, alternative treatment, potential consequence of no treatment, and gave informed consent. Legal Status: Involuntary Reaction to Hospitalization: Accepting Legal Status: Involuntary Patient Problems: Current Active Problems Auditory hallucinations (Acute) Suicidal ideation (Acute) Reaction to Hospitalization: Accepting Medications and Allergies Allergies Allergy/AdvReac Type Severity Reaction Status Date / Time No Known Allergies Allergy Unverified 08/21/21 10:32 Home Medications Medication Instructions Recorded Confirmed Last Taken Type ALPRAZolam [Xanax TAB] 0.5 mg PO DAILY PRN 08/21/21 09/13/21 Unknown History OLANZapine [Olanzapine] 10 mg PO HS 08/21/21 09/13/21 Unknown History cloNIDine [Catapres] 0.1 mg PO QHS 08/21/21 09/13/[address] [DepaKOTE DR] 250 mg PO BID #60 tablet 08/25/21 09/13/21 Unknown Rx Doxepin [SINEquan] 10 mg PO QHS #30 capsule 08/25/21 09/13/21 Unknown Rx FLUoxetine HCL [PROzac] 40 mg PO QAM #30 cap 08/25/21 09/13/21 Unknown Rx risperiDONE [RisperDAL ORAL LIQD] 1 mg PO DAILY #30 ml 08/25/21 09/13/21 Unknown Rx Active Meds: Active Medications Alprazolam (Alprazolam 0.5 Mg Tab) 0.5 mg PO ONCE PRN PRN Reason: Anxiety Clonidine HCl (Clonidine 0.1 Mg Tab) 0.1 mg PO ONCE NR Stop: 09/13/21 22:00 Divalproex Sodium (Divalproex Dr 250 Mg Tab) 250 mg PO ONCE ONE Stop: 09/13/21 16:01 Doxepin HCl (Doxepin 10 Mg Cap) 10 mg PO QHS FED[place] Fluoxetine HCl (Fluoxetine 20 Mg Cap) 40 mg PO ONCE NR Stop: 09/14/21 10:00 Olanzapine (Olanzapine 10 Mg Tab) 10 mg PO ONCE NR Stop: 09/13/21 22:00 Results - Results Labs/Vitals: Laboratory Last Values WBC 6.5 K/mm3 (4.5-11.0) 09/13/21 07:01 RBC 4.35 M/mm3 (3.65-5.03) 09/13/21 07:01 Hgb 12.9 gm/dl (10.1-14.3) 09/13/21 07:01 Hct 39.4 % (30.3-42.9) 09/13/21 07:01 MCV 91 fl (79-97) 09/13/21 07:01 MCH 30 pg (28-32) 09/13/21 07:01 MCHC 33 % (30-34) 09/13/21 07:01 RDW 16.4 % (13.2-15.2) H 09/13/21 07:01 Plt Count 350 K/mm3 (140-440) 09/13/21 07:01 Lymph % (Auto) 43.2 % (13.4-35.0) H 09/13/21 07:01 Sharkey % (Auto) 8.8 % (0.0-7.3) H 09/13/21 07:01 Eos % (Auto) 1.0 % (0.0-4.3) 09/13/21 07:01 Baso % (Auto) 0.2 % (0.0-1.8) 09/13/21 07:01 Lymph # (Auto) 2.8 K/mm3 (1.2-5.4) 09/13/21 07:01 Sharkey # (Auto) 0.6 K/mm3 (0.0-0.8) 09/13/21 07:01 Eos # (Auto) 0.1 K/mm3 (0.0-0.4) 09/13/21 07:01 Baso # (Auto) 0.0 K/mm3 (0.0-0.1) 09/13/21 07:01 Seg Neutrophils % 46.8 % (40.0-70.0) 09/13/21 07:01 Seg Neutrophils # 3.0 K/mm3 (1.8-7.7) 09/13/21 07:01 Sodium 137 mmol/L (137-145) 09/13/21 07:01 Potassium 4.3 mmol/L (3.6-5.0) 09/13/21 07:01 Chloride 98.6 mmol/L (98-107) 09/13/21 07:01 Carbon Dioxide 28 mmol/L (22-30) 09/13/21 07:01 Anion Gap 15 mmol/L 09/13/21 07:01 BUN 7 mg/dL (7-17) 09/13/21 07:01 Creatinine 0.7 mg/dL (0.6-1.2) 09/13/21 07:01 Estimated GFR > 60 ml/min 09/13/21 07:01 BUN/Creatinine Ratio 10 % 09/13/21 07:01 Glucose 84 mg/dL (65-100) 09/13/21 07:01 Calcium 10.1 mg/dL (8.4-10.2) 09/13/21 07:01 HCG, Qual Negative (Negative) 09/13/21 07:01 Salicylates < 0.3 mg/dL (2.8-20.0) L 09/13/21 07:01 Acetaminophen 5.0 ug/mL (10.0-30.0) L 09/13/21 07:01 Plasma/Serum Alcohol < 0.01 % (0-0.07) 09/13/21 07:01 Coronavirus (PCR) Negative (Negative) 09/13/21 13:24 Last Vital Signs Temp 97.6 F 09/13/21 15:31 Pulse 64 09/13/21 15:31 Resp 18 09/13/21 15:31 BP 99/70 09/13/21 15:31 Pulse Ox 95 09/13/21 15:31 Physical Examination - Constitutional Vitals: Vital Signs Temp Pulse Resp BP Pulse Ox 97.6 F 64 18 99/70 95 09/13/21 15:31 09/13/21 15:31 09/13/21 15:31 09/13/21 15:31 09/13/21 15:31 Temperature -Last 24 Hours Temperature 97.6 F Temperature 98.6 F Temperature 98 F Mental Status Exam - Vital signs Last Vital Signs Temp 97.6 F 09/13/21 15:31 Pulse 64 09/13/21 15:31 Resp 18 09/13/21 15:31 BP 99/70 09/13/21 15:31 Pulse Ox 95 09/13/21 15:31 Physician Certification - Certification Statement Physician Certification Statement: This is an acknowledgement statement that RALPH KINCAID is a 51 year old F who requires inpatient psychiatric admission for treatment which could reasonably be expected to improve the patient's condition for Estimated period of time patient will need to remain in the hospital: [ ] Plan for post-hospital care: [ ]
[2021-09-13 18:31] LABS: Bilirubin,Urine NEG (Negative); Blood,Urine NEG (Negative); Color,Urine Yellow (Yellow); Protein,Urine <15 mg/dL mg/dL (Negative); Urobilinogen,Urine < 2.0 mg/dL (<2.0)
[2021-09-13 18:33] LABS: Mucus,Urine 3+ /HPF
[2021-09-13 18:42] LABS: Amphetamine Screen,Urine PRESUMPTIVE NEGATIVE; Benzodiazepines Screen,Urine PRESUMPTIVE NEGATIVE; Cannabinoid Screen,Urine PRESUMPTIVE POSITIVE; Cocaine Screen,Urine PRESUMPTIVE POSITIVE; Methadone Screen,Urine PRESUMPTIVE NEGATIVE; Opiate Screen,Urine PRESUMPTIVE NEGATIVE
[2021-09-13] MEDS ORDERED: DIVALPROEX DR 250 MG TAB PO SCH (22:00)
[2021-09-13] MEDS ORDERED: DOXEPIN 10 MG CAP PO SCH (22:00)
[2021-09-14 08:33] VITALS: BP 108/75
[2021-09-14] MEDS ORDERED: FLUoxetine 20 MG CAP PO SCH (10:00)
--- NOTE | 2021-09-14 13:37 | Progress Note ---
Subjective - Reason for Consult Reason for consult: MHE - Chief Complaint Chief complaint: SUBJECTIVE DATE SEEN: 11/15/2021 I interviewed the patient this morning. Patient states that she is doing better. Patient states that she slept well and has a good appetite.Medical records reviewed and patient's progress was discussed with unit staff. Patients previous home meds started. Patient denies current SI/ HI and was told to ask staff for help if any of these symptoms increase.Patient waiting inpatient placement. Review of Symptoms: Constitutional: Negative for weight loss ENT: Negative for stridor Respiratory: Negative for cough or hemoptysis All other systems reviewed and are negative MSE Appearance: Wearing appropriate clothing. Good hygiene Behavior: Pleasant and cooperative. Mood: "Good" Affect: Congruent with stated mood Thought Process: Goal directed Speech: Normal rate. Thought Content Harmfulness Denies SI/HI Hallucinations: patient denies Delusions: none elicited Consciousness: alert. Cognition/Memory: normal. Insight/Judgment: Limited. Treatment Plan Will continue q15 min safety checks. Will encourage the use of environmental modifications and non-pharmacologic approaches for the management of behavioral and psychological symptoms. Will continue current psych medications Monitor for medication side effects. The patient will continue on medications for physical illnesses, and Hospitalist will closely monitor these Continue intensive physical and occupational therapies. Monitor patient's mood, sleep, appetite, and behavior closely. Will provide a safe and therapeutic environment for patient. Mental Status Exam - Vital signs Last Vital Signs Temp 97.9 F 09/14/21 08:32 Pulse 75 09/14/21 08:32 Resp 18 09/14/21 08:32 BP 108/75 09/14/21 08:32 Pulse Ox 95 09/14/21 08:32
[2021-09-14] MEDS ORDERED: DIVALPROEX DR 250 MG TAB PO SCH (22:00)
[2021-09-14] MEDS ORDERED: DOXEPIN 10 MG CAP PO SCH (22:00)
[2021-09-15] MEDS ORDERED: risperiDONE 1 MG TAB PO SCH (10:00)
[2021-09-15] MEDS ORDERED: FLUoxetine 20 MG CAP PO SCH (10:00)
== END 2021-09-14 08:33 | disposition short-term general hospital (02) ==
LOC: ED 05:17
DX: R45.851 Suicidal ideations (principal); R44.0 Auditory hallucinations; Z20.822 Contact with and (suspected) exposure to COVID-19; I10 Essential (primary) hypertension; D25.9 Leiomyoma of uterus, unspecified; Z98.890 Other specified postprocedural states; F17.290 Nicotine dependence, other tobacco product, uncomplicated
CPT/HCPCS: 36415; 80048; 80307; 81001; 84703; 85025; 99285; U0003; 80320; G0480

== ENCOUNTER 2021-10-23 11:41 | Emergency (ER) | payer MEDICAID ==
--- NOTE | 2021-10-23 12:34 | Emergency Department Report ---
ED Female HPI - General Chief complaint: Vaginal Bleeding Stated complaint: BLEEDING PROBLEMS Time Seen by Provider: 10/23/21 12:29 Source: patient Mode of arrival: Ambulatory Limitations: No Limitations - History of Present Illness Initial comments: 51 YO WITH A/C FIBROIDS AND VAG BLEED FOR 12 DAYS. HERE TO MAKE SURE HER HGB IS OK. NO CP. NO SOB. AMBULATORY AND NAD [facility] Complaint: vaginal bleeding -: Sudden Improves with: none Worsens with: none Are you Now?: No Associated Symptoms: denies other symptoms, vaginal bleeding. denies: vaginal discharge, abdominal pain, nausea/vomiting, fever/chills - Related Data Sexually active: Yes Home Medications Medication Instructions Recorded Confirmed Last Taken ALPRAZolam [Xanax TAB] 0.5 mg PO DAILY PRN 08/21/21 09/13/21 Unknown OLANZapine [Olanzapine] 10 mg PO HS 08/21/21 09/13/21 Unknown cloNIDine [Catapres] 0.1 mg PO QHS 08/21/21 09/13/21 Unknown Previous Rx's Medication Instructions Recorded Last Taken Type Divalproex Dr [DepaKOTE DR] 250 mg PO BID #60 tablet 08/25/21 Unknown Rx Doxepin [SINEquan] 10 mg PO QHS #30 capsule 08/25/21 Unknown Rx FLUoxetine HCL [PROzac] 40 mg PO QAM #30 cap 08/25/21 Unknown Rx risperiDONE [RisperDAL ORAL LIQD] 1 mg PO DAILY #30 ml 08/25/21 Unknown Rx Allergies Allergy/AdvReac Type Severity Reaction Status Date / Time No Known Allergies Allergy Verified 10/23/21 11:55 ED Review of Systems ROS: Stated complaint: BLEEDING PROBLEMS Other details as noted in HPI Comment: All other systems reviewed and negative ED Past Medical Hx - Past Medical History Previous Medical History?: Yes Hx Hypertension: Yes Hx Psychiatric Treatment: Yes (Schizophrenia) Additional medical history: Uterine Fibroids - Surgical History Past Surgical History?: Yes Additional Surgical History: D&C, Myomectomy, Oral Surgery - Family History Family history: no significant - Social History Smoking Status: Current Every Day Smoker Substance Use Type: Marijuana - Medications Home Medications: Home Medications Medication Instructions Recorded Confirmed Last Taken Type ALPRAZolam [Xanax TAB] 0.5 mg PO DAILY PRN 08/21/21 09/13/21 Unknown History OLANZapine [Olanzapine] 10 mg PO HS 08/21/21 09/13/21 Unknown History cloNIDine [Catapres] 0.1 mg PO QHS 08/21/21 09/13/[address] [DepaKOTE DR] 250 mg PO BID #60 tablet 08/25/21 09/13/21 Unknown Rx Doxepin [SINEquan] 10 mg PO QHS #30 capsule 08/25/21 09/13/21 Unknown Rx FLUoxetine HCL [PROzac] 40 mg PO QAM #30 cap 08/25/21 09/13/21 Unknown Rx risperiDONE [RisperDAL ORAL LIQD] 1 mg PO DAILY #30 ml 08/25/21 09/13/21 Unknown Rx ED Physical Exam - General Limitations: No Limitations General appearance: alert, in no apparent distress - Head Head exam: Present: atraumatic, normocephalic - Eye Eye exam: Present: normal appearance - ENT ENT exam: Present: mucous membranes moist - Neck Neck exam: Present: normal inspection - Respiratory Respiratory exam: Present: normal lung sounds bilaterally. Absent: respiratory distress - Cardiovascular Cardiovascular Exam: Present: regular rate, normal rhythm. Absent: systolic murmur, diastolic murmur, rubs, gallop - GI/Abdominal GI/Abdominal exam: Present: soft, normal bowel sounds - Extremities Exam Extremities exam: Present: normal inspection - Back Exam Back exam: Present: normal inspection - Neurological Exam Neurological exam: Present: alert, oriented X3 - Psychiatric Psychiatric exam: Present: normal affect, normal mood - Skin Skin exam: Present: warm, dry, intact, normal color. Absent: rash ED Course Vital Signs 10/23/21 11:51 Temperature 97.3 F L Pulse Rate 76 Respiratory 16 Rate Blood Pressure 119/84 [Right] O2 Sat by Pulse 98 Oximetry ED Medical Decision Making - Lab Data Result diagrams: 10/23/21 13:03 10/23/21 13:03 - Medical Decision Making Lab Results 10/23/21 10/23/21 Range/Units 13:03 13:03 WBC 6.1 (4.5-11.0) K/mm3 RBC 4.12 (3.65-5.03) M/mm3 Hgb 12.6 (10.1-14.3) gm/dl Hct 37.4 (30.3-42.9) % MCV 91 (79-97) fl MCH 31 (28-32) pg MCHC 34 (30-34) % RDW 16.2 H (13.2-15.2) % Plt Count 231 (140-440) K/mm3 Estimated GFR > 60 ml/min BUN/Creatinine Ratio 13 % Vital Signs 10/23/21 11:51 Temperature 97.3 F L Pulse Rate 76 Respiratory 16 Rate Blood Pressure 119/84 [Right] O2 Sat by Pulse 98 Oximetry LABS NOTED NO CP NO SOB NO HEADACHE NO DIZZINESS AMBULATORY AND NAD TAKING PO LABS NOTED HGB STABLE PREG NEG DC HOME WITH DC PLAN OF CARE INCLUDING DIET, MEDS, ACTIVITY AND FOLLOW UP. PT VERBALIZES UNDERSTANDING OF PLAN OF CARE. - Differential Diagnosis RO SYMTPOMATIC ANEMIA Critical care attestation.: If time is entered above; I have spent that time in minutes in the direct care of this critically ill patient, excluding procedure time. ED Disposition Clinical Impression: DUB (dysfunctional uterine bleeding), Fibroids Disposition: 01 HOME / SELF CARE / HOMELESS Is pt being admited?: No Does the pt Need Aspirin: No Condition: Stable Instructions: Abnormal Uterine Bleeding Additional Instructions: follow up with obgyn referral given drink a lot of water motrin or tylenol for pain Referrals: STARLA MORALEZ MD [Staff Physician] - 3-5 Days Forms: Work/School Release Form(ED) Time of Disposition: 15:17
[2021-10-23 14:42] LABS: Hematocrit 37.4 % (30.3-42.9); Hemoglobin 12.6 gm/dl (10.1-14.3); Mean Corpuscular HGB Conc 34 % (30-34); Mean Corpuscular Volume 91 fl (79-97); Platelet Count 231 K/mm3 (140-440); Red Blood Count 4.12 M/mm3 (3.65-5.03); Red Cell Distribution Width 16.2 % (13.2-15.2)
[2021-10-23 14:53] LABS: BUN/Creatinine Ratio 13; Blood Urea Nitrogen 10 mg/dL (7-17); Calcium 9.2 mg/dL (8.4-10.2); Hemolysis Index 4
[2021-10-23 16:09] VITALS: BP 104/79
== END 2021-10-23 16:09 | disposition home or self-care (01) ==
LOC: ED 11:41
DX: N93.8 Other specified abnormal uterine and vaginal bleeding (principal); D21.9 Benign neoplasm of connective and other soft tissue, unspecified; I10 Essential (primary) hypertension; F20.9 Schizophrenia, unspecified; F17.200 Nicotine dependence, unspecified, uncomplicated
CPT/HCPCS: 36415; 80048; 84703; 85027; 99283